=== PATIENT | female | born 1995 | race Caucasian/White ===

== ENCOUNTER 2020-03-30 10:55 | Outpatient (REF) | payer MEDICAID, SELFPAY | END 2020-03-30 10:56 | disposition home or self-care (01) | LOC: HO.LAB 10:55 | PROVIDERS: Visit Provider Internal Medicine | DX: Z20.828 Contact with and (suspected) exposure to other viral communicable diseases (principal) | CPT/HCPCS: 87635 ==

== ENCOUNTER 2020-04-19 19:54 | Emergency (ER) | payer MEDICAID, SELFPAY ==
[2020-04-19 20:46] VITALS: BP 103/65; PULSE 81; RESP 16; TEMP 36.4; O2SAT 96; BMI 30.2
--- NOTE | 2020-04-19 21:37 | ED_ITS ---
HPI - Ear Problem General Chief complaint: Ear Problems Stated complaint: ear bleeding Time Seen by Provider: 04/19/20 21:27 Source: patient Mode of arrival: ambulatory Limitations: no limitations History of Present Illness HPI Narrative: 24-year-old female presenting to the ED with complaints of right ear pain. Reports she was cleaning her ear due to she fell that she had water coming out of her ear and it was clogged and when she pulled out the Q-tip there was a little bit of blood in it and since then has been having worsening pain. Denies any other symptoms complaints or concerns at this time. Denies loss of hearing. Related Data Previous Rx's Medication Instructions Recorded acetaminophen-codeine 1 tab PO Q8H PRN #8 tab 04/19/20 amoxicillin-pot clavulanate 1 tab PO Q12H 10 Days #20 tab 04/19/20 [Augmentin] Allergies Allergy/AdvReac Type Severity Reaction Status Date / Time No Known Allergies Allergy Verified 04/19/20 20:46 [No Known Allergies*] Review of Systems Review of Systems: Constitutional : No Fever, No Chills ENT/Mouth : No Hearing loss, + Ear Pain, No Nasal Congestion, No Sinus Pain, No Hoarseness, No sore throat, No Rhinorrhea, No Swallowing Difficulty Cardiovascular : No Chest Pain, No SOB, No Dyspnea on Exertion, No Orthopnea, No Edema, No Palpitations Respiratory : No Cough, No Sputum, No Wheezing Musculoskeletal : No joint pain, No Myalgias, No Joint Swelling Skin : No Skin Lesions, No rash Neuro : No Weakness, No Numbness, No Paresthesias, No Loss of Consciousness, No Dizziness, No Headache Heme/Lymph: No Lymphadenopathy Yes all other systems are reviewed and are negative [facility], [facility] Past Medical History Attestation statement: The following information was validated with the patient. Medical History No known health problems Social History Social History Advance Directives: No Advance Directives Information Provided: Yes Physical Exam Vital Signs: Vital Signs: Vital Signs Temp Pulse Resp BP Pulse Ox 04/19/20 20:46 97.6 F 81 16 103/65 96 Body Mass Index 30.2 vital signs have been reviewed as normal and appeared to be correct. Blood pressure normal. Heart rate normal. Respiration rate normal. Temperature normal. Oxygen saturation normal. Appearance: Alert. Oriented X3. No acute distress. Head: Normal external exam. Normocephalic. Atraumatic. No Pedro signs noted. No raccoon eyes noted Eyes: PERRLA. EOMI. Conjunctiva and sclera normal. Eyelids normal. ENT: EAC normal. Right tympanic membrane erythematous with loss of landmarks. Left tympanic membrane within normal limits. Pharynx normal. Uvula midline. Moist mucous membranes. No trismus noted. No drooling noted. No muffled voice noted. Neck: Normal inspection. Neck supple. FROM. No adenopathy. Thyroid Normal. No meningeal signs. No neck mass noted. CVS: Normal heart rate and rhythm. Heart sound normal. No murmurs noted. Pulses normal throughout. Respiratory: No respiratory distress. Painless inspiration. Breath sounds normal. No wheezes/rales/rhonchi noted. Chest nontender. No accessory muscle usage noted or decreased air movement noted. Back: No CVA tenderness. Full range of motion noted. Skin: Skin warm and dry. Normal skin color. Normal skin turgor. No rash es/lesions/lacerations noted. Extremities: No lower extremity edema. Extremities exhibit normal range of motion. Extremities nontender. Neuro: Oriented X 3. No motor deficit. No sensory deficit. Reflexes normal. Course Course Course Narrative: Patient with otitis media tympanic membrane appears to be intact. Will DC home with antibiotics and symptomatic treatment along with instructions to follow-up with primary care provider and to return if any new or worsening symptoms. Patient understands agrees with this plan. Discharge Plan Discharge Clinical Impression: Otitis media Patient Disposition: Home, Self-Care Instructions: Ear Infection (ED) Additional Instructions: Return if any new or worsening symptoms. Follow up with her primary care provider. Prescriptions: New amoxicillin-pot clavulanate [Augmentin] 875-125 mg tablet 1 tab PO Q12H 10 Days Qty: 20 RF: 0 acetaminophen-codeine 300-30 mg tablet 1 tab PO Q8H PRN (Reason: pain) Qty: 8 RF: 0 Stand Alone Forms: Work/School Release Print Language: Bolivian
== END 2020-04-19 21:59 | disposition home or self-care (01) ==
PROVIDERS: Emergency Provider Internal Medicine
DX: H66.91 Otitis media, unspecified, right ear (principal)
CPT/HCPCS: 99283

== ENCOUNTER 2020-04-23 11:10 | Emergency (ER) | payer MEDICAID, SELFPAY ==
[2020-04-23 11:18] VITALS: BP 98/72; PULSE 83; RESP 20; TEMP 36.7; BMI 30.7
--- NOTE | 2020-04-23 11:27 | CT_ITS ---
CT TEMPORAL BONE WITHOUT CONTRAST CLINICAL INFORMATION: Rule out mastoiditis. COMPARISON: None TECHNIQUE: Multidetector CT acquisition of the temporal bones is obtained without contrast. Multiplanar reformats are acquired and utilized for image interpretation. FINDINGS: There is mild soft tissue thickening along the periphery of the right bony external auditory canal and there is thickening of the right tympanic membrane that can be correlated with direct visual inspection to exclude otitis externa. There is a small left mastoid tip effusion without bone erosion. Mastoid air cells and middle ear cavities are otherwise clear bilaterally. No bony erosive changes. The ossicular chains are intact bilaterally. The inner ear structures are unremarkable bilaterally. The partially imaged paranasal sinuses remain well-aerated. The TMJs are normal. Facial nerves describe a normal course. There are no significant soft tissue findings. CT/CT mastoid IMPRESSION: There is mild soft tissue thickening along the periphery of the right bony external auditory canal and there is thickening of the right tympanic membrane that can be correlated with direct visual inspection to exclude otitis externa. There is a small left mastoid tip effusion without bone erosion. The mastoid air cells and middle ear cavities are otherwise clear bilaterally.
--- NOTE | 2020-04-23 11:29 | ED.PEDHENT ---
HPI - Pediatric HENT General Chief complaint: Ear Problems Stated complaint: EAR PAIN Time Seen by Provider: 04/23/20 11:18 Source: patient Mode of arrival: ambulatory Limitations: no limitations History of Present Illness HPI Narrative: R ear pain x 1 week with pink drainage from the ear. Seen here 04/19 and diagnosed with R AOM. Given augmentin and tylenol with codeine. Continued pain now behind the ear. No fevers/chills. MD complaint: ear pain Onset (ago): week(s) (1 week ) Fever: No Pain location: right ear Pain Consistency: constant Context: none Associated symptoms: discharge from ear Treatments prior to arrival: other (Augmentin, APAP with codeine. ) Related Data Previous Rx's Medication Instructions Recorded acetaminophen-codeine 1 tab PO Q8H PRN #8 tab 04/19/20 amoxicillin-pot clavulanate 1 tab PO Q12H 10 Days #20 tab 04/19/20 [Augmentin] ciprofloxacin-dexamethasone 4 drp OTIC (EARS) BID 7 Days #7.5 04/23/20 [Ciprodex] ml clindamycin HCl 300 mg PO BID 7 Days #14 cap 04/23/20 hydrocodone-acetaminophen 2 tab PO Q6H PRN #10 tab 04/23/20 Allergies Allergy/AdvReac Type Severity Reaction Status Date / Time No Known Allergies Allergy Verified 04/19/20 20:46 [No Known Allergies*] Pediatric Review of Systems : All systems ED: reviewed and negative except as stated Constitutional: Denies fever and chills Eyes: Denies eye pain and eye discharge ENT: Reports ear pain and other (ear dischrge ); Denies sore throat Cardiovascular: Denies chest pain, syncope and dyspnea on exertion Respiratory: Denies cough, dyspnea and wheezing Gastrointestinal: Denies abdominal pain, nausea, vomiting and diarrhea Musculoskeletal: Denies back pain, joint swelling and joint pain Integumentary: Denies rash Neurological: Denies headache, weakness and difficulty walking Psychiatric: Denies change in energy level Endocrine: Denies fatigue Hematological/Lymphatic: Denies easy bleeding and easy bruising PMFSH Past Medical History Attestation statement: The following information was validated with the patient. Source: obtained from family and nursing notes reviewed Medical History No known health problems Social History Social History Smoking Status: Light tobacco smoker Use of substances other than those prescribed or required for medical reasons: No Advance Directives: No Advance Directives Information Provided: No Pediatric Exam General: Limitations: no limitations General appearance: well-appearing, well-hydrated and active Head: Head exam: normocephalic Eye: Eye exam: Present normal appearance, PERRL and EOMI ENT: ENT exam: normal exam, normal oropharynx, mucous membranes moist and mucous membranes dry Expanded ENT Exam: External ear exam: Present mastoid tenderness, pain with movement and external tenderness TM/Canal exam: Right TM: erythema, bulging, loss of landmarks, canal discharge and canal tenderness Neck: Neck exam: Present normal inspection, full ROM and trachea midline; Absent meningismus and lymphadenopathy Chest: Chest inspection: Present normal inspection and symmetric chest wall rise Respiratory: Respiratory exam: Present normal lung sounds bilaterally; Absent respiratory distress, wheezes, stridor, accessory muscle use and prolonged expiratory phase Cardiovascular: Cardiovascular exam: Present regular rate and normal rhythm Abdominal Exam: Abdominal exam: Present soft; Absent tenderness Extremities Exam: Extremities exam: Present normal inspection, full ROM and normal capillary refill; Absent tenderness, pedal edema, joint swelling and calf tenderness Back Exam: Back exam: Present normal inspection and full ROM Skin: Skin exam: Present warm, dry and intact Course Course Course Narrative: Will check CT mastoid to r/o mastroiditis, check urine , give analgesia and re-assess. 1300-Ct read as mild soft tissue thickening along the periphery of the right bony external auditory canal and there is thickening of the right tympanic membrane that can be correlated with direct visual inspection to exclude otitis externa. There is a small left mastoid tip effusion without bone erosion. The mastoid air cells and middle ear cavities are otherwise clear bilaterally. Not likely mastroiditis. Patient has no obvious sweling/erythema over mastoid. She does have tenderness. Discussed with Dr Corrales who agrees not likely mastoiditis. Will check labs including inflammatory markers, give dose if IV antibiotics. 1505- labs show no leukocytosis. No shift. Inflammatory markers are negative. Again exam is not consistent with mastoiditis with no obvious swelling or erythema. The patient will be sent home with antibiotics, additional pain medication and follow-up with ear nose and throat. Reviewed worrisome signs and symptoms and when to return to the emergency department. Comfortable discharge home. Medical Decision Making Medical Records Medical records reviewed: Yes I reviewed the patient's medical records. Lab Data Lab results reviewed: Yes I reviewed the patient's lab results. Result diagrams: 04/23/20 13:57 04/23/20 13:57 Labs: Lab Results 04/23/20 04/23/20 04/23/20 Range/Units 11:41 13:57 13:57 WBC 8.6 (4.8-10.8) X10*3/uL RBC 3.88 L (4.20-5.50) X10*6/uL Hgb 11.8 L (12.0-16.0) g/dl Hct 35.5 L (37-47) % MCV 91.5 (80-98) fL MCH 30.4 (27.0-33.0) pg MCHC 33.2 (31.0-35.0) g/dl RDW 13.7 (11.0-16.0) % Plt Count 201 (160-400) X10*3/uL MPV 12.7 H (9.4-12.3) fL Immature Gran % (Auto) 0.3 (0.0-0.4) % Neut % (Auto) 65.9 (45-73) % Lymph % (Auto) 21.1 (20-40) % [place] % (Auto) 7.9 (2-11) % Eos % (Auto) 4.6 H (0-4) % Baso % (Auto) 0.2 (0-2) % Lymph # (Auto) 1.8 (1.2-4.9) X10*3/uL [place] # (Auto) 0.7 (0.1-1.2) X10*3/uL Eos # (Auto) 0.4 (0.0-0.4) X10*3/uL Baso # (Auto) 0.0 (0.0-0.2) X10*3/uL Abs Immat Gran (auto) 0.03 (0.00-0.03) X10*3/uL Absolute Neuts (auto) 5.7 (2.0-8.3) X10*3/uL Absolute Nucleated RBC 0.000 (0.0-0.012) X10*3/uL Nucleated RBC % (auto) 0.0 (0.0-0.2) /100WBC ESR 12 (0-20) MM/HR Hold Blue Top Sodium (135-145) mmol/L Potassium (3.3-5.1) mmol/l Chloride (96-108) mmol/L Carbon Dioxide (22-29) mmol/L Anion Gap (12-20) BUN (9-16) mg/dL Creatinine (0.5-1.4) mg/dL Estim Creat Clear Calc Estimated GFR Random Glucose (60-115) mg/dL Calcium (8.4-10.2) mg/dL C-Reactive Protein (< or = 0.50) mg/dL Urine Test NEGATIVE (NEGATIVE) 04/23/20 04/23/20 Range/Units 13:57 13:57 WBC (4.8-10.8) X10*3/uL RBC (4.20-5.50) X10*6/uL Hgb (12.0-16.0) g/dl Hct (37-47) % MCV (80-98) fL MCH (27.0-33.0) pg MCHC (31.0-35.0) g/dl RDW (11.0-16.0) % Plt Count (160-400) X10*3/uL MPV (9.4-12.3) fL Immature Gran % (Auto) (0.0-0.4) % Neut % (Auto) (45-73) % Lymph % (Auto) (20-40) % [place] % (Auto) (2-11) % Eos % (Auto) (0-4) % Baso % (Auto) (0-2) % Lymph # (Auto) (1.2-4.9) X10*3/uL [place] # (Auto) (0.1-1.2) X10*3/uL Eos # (Auto) (0.0-0.4) X10*3/uL Baso # (Auto) (0.0-0.2) X10*3/uL Abs Immat Gran (auto) (0.00-0.03) X10*3/uL Absolute Neuts (auto) (2.0-8.3) X10*3/uL Absolute Nucleated RBC (0.0-0.012) X10*3/uL Nucleated RBC % (auto) (0.0-0.2) /100WBC ESR (0-20) MM/HR Hold Blue Top SEE NOTE Sodium 140 (135-145) mmol/L Potassium 4.5 (3.3-5.1) mmol/l Chloride 106 (96-108) mmol/L Carbon Dioxide 26 (22-29) mmol/L Anion Gap 13 (12-20) BUN 13 (9-16) mg/dL Creatinine 0.67 (0.5-1.4) mg/dL Estim Creat Clear Calc 118.9 Estimated GFR > 60 Random Glucose 84 (60-115) mg/dL Calcium 8.2 L (8.4-10.2) mg/dL C-Reactive Protein 0.14 (< or = 0.50) mg/dL Urine Test (NEGATIVE) Imaging Data CT mastoid: Radiologist's impression: T TEMPORAL BONE WITHOUT CONTRAST CLINICAL INFORMATION: Rule out mastoiditis. COMPARISON: None TECHNIQUE: Multidetector CT acquisition of the temporal bones is obtained without contrast. Multiplanar reformats are acquired and utilized for image interpretation. FINDINGS: There is mild soft tissue thickening along the periphery of the right bony external auditory canal and there is thickening of the right tympanic membrane that can be correlated with direct visual inspection to exclude otitis externa. There is a small left mastoid tip effusion without bone erosion. Mastoid air cells and middle ear cavities are otherwise clear bilaterally. No bony erosive changes. The ossicular chains are intact bilaterally. The inner ear structures are unremarkable bilaterally. The partially imaged paranasal sinuses remain well-aerated. The TMJs are normal. Facial nerves describe a normal course. There are no significant soft tissue findings. CT/CT mastoid IMPRESSION: There is mild soft tissue thickening along the periphery of the right bony external auditory canal and there is thickening of the right tympanic membrane that can be correlated with direct visual inspection to exclude otitis externa. There is a small left mastoid tip effusion without bone erosion. The mastoid air cells and middle ear cavities are otherwise clear bilaterally. Discharge Plan Discharge Clinical Impression: Otitis media, Otitis externa Patient Disposition: Home, Self-Care Instructions: Ear Infection (ED) Additional Instructions: Stop augmentin. Start clindamycin Call ENT for follow-up. Prescriptions: New clindamycin HCl 300 mg capsule 300 mg PO BID 7 Days Qty: 14 RF: 0 ciprofloxacin-dexamethasone [Ciprodex] 0.3-0.1 % drops,suspension 4 drp otic (ears) BID 7 Days Qty: 7.5 RF: 0 hydrocodone-acetaminophen 5-300 mg tablet 2 tab PO Q6H PRN (Reason: pain) Qty: 10 RF: 0 No Action amoxicillin-pot clavulanate [Augmentin] 875-125 mg tablet 1 tab PO Q12H 10 Days Qty: 20 RF: 0 acetaminophen-codeine 300-30 mg tablet 1 tab PO Q8H PRN (Reason: pain) Qty: 8 RF: 0 Referrals: Angus Choi [Physician] - 2 days Interventions: ED Discharge Assessment Last Done: 04/23/20 15:02 Discharge Date/Time: 04/23/20 15:03
[2020-04-23] MEDS: Ketorolac Tromethamine 60 MG/2 ML VIAL IM (11:36)
[2020-04-23 11:58] LABS: UPreg QC Valid YES; Urine Pregnancy NEGATIVE (NEGATIVE)
[2020-04-23] MEDS: Clindamycin Phosphate/D5W 600 MG/50 ML PIGGYBACK 100 MG IV (14:02)
[2020-04-23 14:04] VITALS: BP 97/64; PULSE 65; RESP 16; TEMP 36.6; O2SAT 99
[2020-04-23 14:18] LABS: MANUAL DIFF FLAG NO
[2020-04-23 14:20] LABS: Basophils Percent Auto 0.2 % (0-2); Eosinophils Absolute Auto 0.4 X10*3/uL (0.0-0.4); Eosinophils Percent Auto 4.6 % (0-4); Hematocrit 35.5 % (37-47); Hemoglobin 11.8 g/dl (12.0-16.0); Imm Gran Abs Auto 0.03 X10*3/uL (0.00-0.03); Imm Gran Pct Auto 0.3 % (0.0-0.4); Lymphocytes Absolute Auto 1.8 X10*3/uL (1.2-4.9); Lymphocytes Percent Auto 21.1 % (20-40); Mean Corpuscular HGB Conc 33.2 g/dl (31.0-35.0); Mean Corpuscular Hemoglobin 30.4 pg (27.0-33.0); Mean Corpuscular Volume 91.5 fL (80-98); Mean Platelet Volume 12.7 fL (9.4-12.3); Monocytes Absolute Auto 0.7 X10*3/uL (0.1-1.2); Monocytes Percent Auto 7.9 % (2-11); Neutrophils Absolute Auto 5.7 X10*3/uL (2.0-8.3); Neutrophils Percent Auto 65.9 % (45-73); Platelet Count 201 X10*3/uL (160-400); Red Blood Count 3.88 X10*6/uL (4.20-5.50); Red Cell Distribution Width 13.7 % (11.0-16.0); White Blood Count 8.6 X10*3/uL (4.8-10.8)
[2020-04-23 14:37] LABS: Anion Gap 13 (12-20); Blood Urea Nitrogen 13 mg/dL (9-16); C Reactive Protein 0.14 mg/dL (< or = 0.50); Calcium 8.2 mg/dL (8.4-10.2); Carbon Dioxide 26 mmol/L (22-29); Chloride 106 mmol/L (96-108); Creatinine Clr Calc Pharmacy 118.9; Estimated Glomerular Filt Rate > 60; Glucose Random 84 mg/dL (60-115); Potassium 4.5 mmol/l (3.3-5.1); Sodium 140 mmol/L (135-145)
[2020-04-23 14:59] LABS: Erythrocyte Sedimentation Rate 12 MM/HR (0-20)
== END 2020-04-23 15:03 | disposition home or self-care (01) ==
PROVIDERS: Nurse Practitioner Family; Emergency Provider Emergency Medicine
DX: H66.001 Acute suppurative otitis media without spontaneous rupture of ear drum, right ear (principal); H92.01 Otalgia, right ear; Z79.899 Other long term (current) drug therapy; F17.200 Nicotine dependence, unspecified, uncomplicated; Z71.6 Tobacco abuse counseling
CPT/HCPCS: 36415; 70481; 80048; 81025; 85025; 85652; 86140; 96365; 96372; 99284; J1885

== ENCOUNTER 2020-06-12 16:26 | Outpatient (REF) | payer MEDICAID, SELFPAY | END 2020-06-12 16:27 | disposition home or self-care (01) | LOC: HO.LAB 16:26 | PROVIDERS: Visit Provider Internal Medicine | DX: Z20.828 Contact with and (suspected) exposure to other viral communicable diseases (principal) | CPT/HCPCS: C9803; U0003 ==

== ENCOUNTER 2020-06-15 14:52 | Outpatient (REF) | payer MEDICAID, SELFPAY | END 2020-06-15 14:53 | disposition home or self-care (01) | LOC: HO.LAB 14:52 | PROVIDERS: PCP Family Medicine; Visit Provider Internal Medicine | DX: Z20.828 Contact with and (suspected) exposure to other viral communicable diseases (principal) | CPT/HCPCS: C9803; U0003 ==

== ENCOUNTER 2020-06-20 16:44 | Emergency (ER) | payer MEDICAID, SELFPAY ==
[2020-06-20 17:18] VITALS: BP 110/67; PULSE 93; RESP 16; TEMP 36.5; O2SAT 100; BMI 30.2
[2020-06-20 20:00] VITALS: BP 122/86; PULSE 100; RESP 16; TEMP 36.6; O2SAT 100
--- NOTE | 2020-06-20 20:27 | ED.GENADULT ---
HPI - General Adult General Chief complaint: Dental/Oral Stated complaint: strept? Time Seen by Provider: 06/20/20 20:27 History of Present Illness HPI narrative: Patient complains of sore throat for 3 days, pain only with swallowing no fever no chills no cough no shortness of breath no nausea or vomiting Related Data Previous Rx's Medication Instructions Recorded acetaminophen-codeine 1 tab PO Q8H PRN #8 tab 04/19/20 amoxicillin-pot clavulanate 1 tab PO Q12H 10 Days #20 tab 04/19/20 [Augmentin] ciprofloxacin-dexamethasone 4 drp OTIC (EARS) BID 7 Days #7.5 04/23/20 [Ciprodex] ml clindamycin HCl 300 mg PO BID 7 Days #14 cap 04/23/20 hydrocodone-acetaminophen 2 tab PO Q6H PRN #10 tab 04/23/20 Allergies Allergy/AdvReac Type Severity Reaction Status Date / Time No Known Allergies Allergy Verified 04/19/20 20:46 [No Known Allergies*] Review of Systems Review of Systems: Patient complains of sore throat No fever no chills no dizziness no weakness, there is pain with swallowing but no difficulty swallowing no difficulty breathing, no chest pain no shortness of breath no cough no sputum no abdominal pain no nausea no vomiting no rashes Yes all other systems are reviewed and are negative PMFSH Past Medical History Source: nursing notes reviewed Medical History No known health problems Social History Social History Smoking Status: Light tobacco smoker Advance Directives: No Advance Directives Information Provided: No Physical Exam Vital Signs: Vital Signs: Last Vital Signs Temp 97.8 F 06/20/20 20:00 Pulse 100 06/20/20 20:00 Resp 16 06/20/20 20:00 BP 122/86 06/20/20 20:00 Pulse Ox 100 06/20/20 20:00 Body Mass Index 30.2 General appearance comfortable relax no acute distress The pharynx is well hydrated and there is mild very mild redness but no tonsillar swelling no exudate, uvula is midline there is no change to the voice no drooling no trismus The neck is supple without lymphadenopathy The chest is clear to auscultation bilateral with full symmetric equal breath sounds The heart rate and rhythm regular no murmurs Extremities no rash Course Course Course Narrative: Rapid strep was negative and patient had negative COVID swab just 2 days ago Discharge Plan Discharge Clinical Impression: Pharyngitis Patient Disposition: Home, Self-Care Additional Instructions: Rapid strep test was negative We will confirm that with the follow-up throat culture and if that changes the result we will call you Your COVID test yesterday was negative Return any time any worse condition or concerns Drink plenty of fluids, Tylenol or Motrin as needed for pain Prescriptions: No Action amoxicillin-pot clavulanate [Augmentin] 875-125 mg tablet 1 tab PO Q12H 10 Days Qty: 20 RF: 0 acetaminophen-codeine 300-30 mg tablet 1 tab PO Q8H PRN (Reason: pain) Qty: 8 RF: 0 clindamycin HCl 300 mg capsule 300 mg PO BID 7 Days Qty: 14 RF: 0 ciprofloxacin-dexamethasone [Ciprodex] 0.3-0.1 % drops,suspension 4 drp otic (ears) BID 7 Days Qty: 7.5 RF: 0 hydrocodone-acetaminophen 5-300 mg tablet 2 tab PO Q6H PRN (Reason: pain) Qty: 10 RF: 0 Interventions: ED Discharge Assessment Last Done: 06/20/20 20:54 Discharge Date/Time: 06/20/20 20:54
== END 2020-06-20 20:54 | disposition home or self-care (01) ==
PROVIDERS: Emergency Provider Emergency Medicine; PCP Family Medicine
DX: J02.9 Acute pharyngitis, unspecified (principal); F17.200 Nicotine dependence, unspecified, uncomplicated; Z71.6 Tobacco abuse counseling
CPT/HCPCS: 87071; 87880; 99283

== ENCOUNTER 2020-11-13 15:56 | Emergency (ER) | payer MEDICAID, SELFPAY ==
[2020-11-13 16:26] VITALS: BP 113/89; PULSE 84; RESP 16; TEMP 35.1; O2SAT 98; BMI 30.2
--- NOTE | 2020-11-13 17:03 | ED.HEATRA ---
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 No LOC, had a moment of blurry vision. No N/V. MD Complaint: head injury Onset (ago): hour(s) (5) Mechanism of Injury: fall Place: home Loss of Consciousness: no Location of injury: occipital Severity: mild Quality: aching Radiation: none Other Injuries: none Related Data Previous Rx's Medication Instructions Recorded acetaminophen-codeine 1 tab PO Q8H PRN #8 tab 04/19/20 amoxicillin-pot clavulanate 1 tab PO Q12H 10 Days #20 tab 04/19/20 [Augmentin] ciprofloxacin-dexamethasone 4 drp OTIC (EARS) BID 7 Days #7.5 04/23/20 [Ciprodex] ml clindamycin HCl 300 mg PO BID 7 Days #14 cap 04/23/20 hydrocodone-acetaminophen 2 tab PO Q6H PRN #10 tab 04/23/20 Allergies Allergy/AdvReac Type Severity Reaction Status Date / Time No Known Allergies Allergy Verified 04/19/20 20:46 [No Known Allergies*] Review of Systems Constitutional: Constitutional: Reports no additional constitutional complaints Eyes: Eyes: Reports no additional eye complaints ENT: Denies dizziness Cardiovascular: Cardiovascular: Reports no additional cardiovascular complaints Respiratory: Respiratory: Reports as per HPI Gastrointestinal: Gastrointestinal: Reports no additional gastrointestinal complaints Genitourinary: Genitourinary: Reports no additional female genitourinary complaints Musculoskeletal: Musculoskeletal: Reports no additional musculoskeletal complaints Integumentary/Breasts: Skin/Breast: Denies rash Neurologic: Reports system reviewed and no additional complaints, except as documented, Denies dizziness and Denies Sensory deficit (Neuro) Psychiatric: Psychiatric: Denies anxiety PMFSH Past Medical History Medical History No known health problems Social History Social History Smoking Status: Light tobacco smoker Patient : No Physical Exam Vital Signs: Vital Signs: Last Vital Signs Temp 95.2 F L 11/13/20 16:26 Pulse 84 05/24/21 16:26 Resp 16 11/13/20 16:26 BP 113/89 11/13/20 16:26 Pulse Ox 98 11/13/20 16:26 Body Mass Index 30.2 Const: General: healthy appearing Nutritional Appearance: average body habitus Orientation/consciousness: oriented to person and patient oriented x3 Limitations: no limitations HENMT: Head: Yes normal to inspection Ears: external ears normal General nose exam: Normal external nose present Mouth: Normal oral and palatal mucosa present and oropharynx normal Throat: Yes posterior oropharynx normal Eyes: General: appearance normal, both eyes and all related structures Neck: Other: supple Neck: Yes normal visual inspection Chest: Chest palpation & inspection: normal inspection of the chest Resp: Auscultation: clear to auscultation bilaterally Cardio: Jugular venous distension: no JVD Rate: regular rate Rhythm: regular rhythm Heart sounds: S1 normal heart sound present and S2 normal heart sound present GI: Inspection: Yes normal to inspection Palpation (GI): Soft to palpation, nontender and No hepatosplenomegaly present Auscultation: normal bowel sounds : General: Yes no CVA tenderness Back/Spine/Pelvis: Back: no CVA tenderness Skin: General skin exam: no rashes or lesions noted Neuro: General: oriented to person and patient oriented x3 Cranial nerves: Yes CN's II-XII intact bilaterally Motor exam (neuro): 5/5 motor strength present throughout Sensory Exam: No Sensory deficit (Neuro) Extrem: General: Yes normal to inspection Psych: Appearance: grossly normal Course Course Course Narrative: patient with no evidence of concussion, neuro exam nonfocal able to do serial 7s. Discharge Plan Discharge Clinical Impression: Closed head injury Patient Disposition: Home, Self-Care Additional Instructions: may alternate tylenol or motrin every 3hours. Return for vomiting and confusion Prescriptions: No Action amoxicillin-pot clavulanate [Augmentin] 875-125 mg tablet 1 tab PO Q12H 10 Days Qty: 20 RF: 0 acetaminophen-codeine 300-30 mg tablet 1 tab PO Q8H PRN (Reason: pain) Qty: 8 RF: 0 clindamycin HCl 300 mg capsule 300 mg PO BID 7 Days Qty: 14 RF: 0 ciprofloxacin-dexamethasone [Ciprodex] 0.3-0.1 % drops,suspension 4 drp otic (ears) BID 7 Days Qty: 7.5 RF: 0 hydrocodone-acetaminophen 5-300 mg tablet 2 tab PO Q6H PRN (Reason: pain) Qty: 10 RF: 0 Referrals: Physician,Unknown [Primary Care Provider] - 1 week
== END 2020-11-13 17:33 | disposition home or self-care (01) ==
PROVIDERS: Emergency Provider Emergency Medicine
DX: S09.90XA Unspecified injury of head, initial encounter (principal); W19.XXXA Unspecified fall, initial encounter; F17.210 Nicotine dependence, cigarettes, uncomplicated; Y93.75 Activity, martial arts; Y92.039 Unspecified place in apartment as the place of occurrence of the external cause; Y99.9 Unspecified external cause status
CPT/HCPCS: 99283; 99284

== ENCOUNTER 2020-12-31 13:55 | Emergency (ER) | payer MEDICAID, SELFPAY ==
[2020-12-31 14:10] VITALS: BP 118/74; PULSE 95; RESP 16; TEMP 36.8; O2SAT 99; BMI 30.2
--- NOTE | 2020-12-31 17:12 | ED.GENADULT ---
HPI - General Adult General Chief complaint: Upper Respiratory Symptoms Stated complaint: SORE THROAT Time Seen by Provider: 12/31/20 17:12 Source: patient Limitations: no limitations History of Present Illness HPI narrative: Patient presents to the ER complaining of sore throat some slight congestion patient states she was exposed to the cold and rainy weather. Patient denies shortness of breath fever chills patient has been fully vaccinated for COVID-19. Patient denies nausea vomiting chest pain or abdominal pain. Symptoms are [id number]. Slight scratchy throat with slight pain with swallowing. Related Data Previous Rx's Medication Instructions Recorded acetaminophen-codeine 1 tab PO Q8H PRN #8 tab 04/19/20 amoxicillin-pot clavulanate 1 tab PO Q12H 10 Days #20 tab 04/19/20 [Augmentin] ciprofloxacin-dexamethasone 4 drp OTIC (EARS) BID 7 Days #7.5 04/23/20 [Ciprodex] ml clindamycin HCl 300 mg PO BID 7 Days #14 cap 04/23/20 hydrocodone-acetaminophen 2 tab PO Q6H PRN #10 tab 04/23/20 Allergies Allergy/AdvReac Type Severity Reaction Status Date / Time No Known Allergies Allergy Verified 04/19/20 20:46 [No Known Allergies*] Review of Systems Constitutional: Constitutional: Denies chills, Denies excessive sweating, Denies fatigue, Reports headache(s) and Denies malaise Eyes: Eyes: Denies diplopia ENT: Reports headache(s), Reports nasal congestion, Denies nasal discharge and Reports sore throat Cardiovascular: Cardiovascular: Denies chest pain and Denies dyspnea Respiratory: Respiratory: Denies cough and Denies dyspnea Gastrointestinal: Gastrointestinal: Denies diarrhea, Denies nausea and Denies vomiting Musculoskeletal: Musculoskeletal: Reports no additional musculoskeletal complaints Neurologic: Reports headache(s) and Denies focal weakness Endocrine: Endocrine: Denies excessive sweating and Denies fatigue PMFSH Past Medical History Attestation statement: The following information was validated with the patient. Medical History No known health problems Social History Social History Alcohol intake: current Alcohol intake frequency: a few times a month Advance Directives: No Advance Directives Information Provided: No Physical Exam Vital Signs: Vital Signs: Last Vital Signs Temp 98.2 F 12/31/20 14:10 Pulse 95 12/31/20 14:10 Resp 16 12/31/20 14:10 BP 118/74 12/31/20 14:10 Pulse Ox 99 12/31/20 14:10 Body Mass Index 30.2 Medical Decision Making Lab Data Labs: Lab Results 12/31/20 Range/Units 17:06 S. pyogenes GrpA DANA Negative (Negative) Discharge Plan Discharge Clinical Impression: Upper respiratory infection Patient Disposition: Home, Self-Care Instructions: Upper Respiratory Infection (ED) Additional Instructions: symptoms are consistent with a upper respiratory tract infection viral syndrome increase fluids rest [id number] meds for relief throat cultures negative Prescriptions: No Action amoxicillin-pot clavulanate [Augmentin] 875-125 mg tablet 1 tab PO Q12H 10 Days Qty: 20 RF: 0 acetaminophen-codeine 300-30 mg tablet 1 tab PO Q8H PRN (Reason: pain) Qty: 8 RF: 0 clindamycin HCl 300 mg capsule 300 mg PO BID 7 Days Qty: 14 RF: 0 ciprofloxacin-dexamethasone [Ciprodex] 0.3-0.1 % drops,suspension 4 drp otic (ears) BID 7 Days Qty: 7.5 RF: 0 hydrocodone-acetaminophen 5-300 mg tablet 2 tab PO Q6H PRN (Reason: pain) Qty: 10 RF: 0 Referrals: Chelsea Lujan [Emergency Nurse] - 2 days
[2020-12-31 17:37] LABS: IDNOW Serial# 9DD0AD1C; Strep A Nucleic Acid Negative (Negative)
[2020-12-31 18:10] LABS: Influenza A PCR NEGATIVE (Negative); Influenza B PCR NEGATIVE (Negative); Resp Syncy Virus RNA Qual PCR NEGATIVE (Negative); SARS COV2 PCR INHOUSE NEGATIVE (Negative)
== END 2020-12-31 18:18 | disposition home or self-care (01) ==
PROVIDERS: Emergency Provider Internal Medicine
DX: J06.9 Acute upper respiratory infection, unspecified (principal); Z20.822 Contact with and (suspected) exposure to COVID-19
CPT/HCPCS: 0241U; 36415; 87651; 99283

== ENCOUNTER 2021-12-21 18:43 | Emergency (ER) | payer MEDICAID, SELFPAY ==
[2021-12-21 18:46] VITALS: BP 119/69; PULSE 99; RESP 18; TEMP 37; O2SAT 97; BMI 30.2
[2021-12-21 19:10] LABS: Strep A Nucleic Acid Negative (Negative)
[2021-12-21 19:15] LABS: COVID-19 Test Negative (Negative); IDNOW Serial# 16C4AD1C; Influenza A Negative (Negative); Influenza B2 Negative (Negative)
--- NOTE | 2021-12-21 19:52 | ED.URI ---
HPI - URI/Sore Throat General Chief Complaint: Upper Respiratory Symptoms Stated Complaint: Cough/Ear pain/Head pressure Time Seen by Provider: 12/21/21 19:33 Source: patient Mode of arrival: ambulatory Limitations: no limitations History of Present Illness HPI Narrative: 26-year-old female previously healthy here with 1 week of sinus pressure, sinus pain, bilateral ear pain, frontal headache. Patient tells me her daughter is sick at home with similar symptoms. No fevers, chills, cough, difficulty breathing, chest pain, neck pain, neck stiffness, vomiting, diarrhea, abdominal pain. Related Data Previous Rx's Medication Instructions Recorded acetaminophen 300 mg-codeine 30 mg 1 tab PO Q8H PRN pain #8 tabs 04/19/20 tablet amoxicillin 875 mg-potassium 1 tab PO Q12H otitis media 10 days 04/19/20 clavulanate 125 mg tablet #20 tabs (Augmentin) ciprofloxacin 0.3 %-dexamethasone 4 drp otic (ears) BID 7 days #7.5 04/23/20 0.1 % ear drops,suspension mL (Ciprodex) clindamycin HCl 300 mg capsule 300 mg PO BID 7 days #14 caps 04/23/20 hydrocodone 5 mg-acetaminophen 300 2 tab PO Q6H PRN pain #10 tabs 04/23/20 mg tablet amoxicillin 875 mg-potassium 1 tab PO BID #14 tabs 12/21/21 clavulanate 125 mg tablet ibuprofen 600 mg tablet 600 mg PO Q8H PRN fever or pain 12/21/21 #30 tabs prednisone 20 mg tablet 40 mg PO DAILY #10 tabs 12/21/21 Allergies Allergy/AdvReac Type Severity Reaction Status Date / Time No Known Allergies Allergy Verified 04/19/20 20:46 [No Known Allergies*] Review of Systems Review of Systems: Yes all other systems are reviewed and are negative Constitutional: Constitutional: Reports no additional constitutional complaints, Denies body ache(s), Denies chills, Denies fever(s), Reports headache(s) and Denies weakness Eyes: Eyes: Reports no additional eye complaints and Denies change in vision ENT: Reports system reviewed and no additional complaints, except as documented, Denies dizziness, Reports otalgia, Reports headache(s), Denies nasal congestion, Denies nasal discharge, Denies neck pain, Reports sinus pain and Reports sinus pressure Cardiovascular: Cardiovascular: Reports no additional cardiovascular complaints, Denies chest pain, Denies leg edema and Denies dyspnea Respiratory: Respiratory: Reports no additional respiratory complaints, Denies cough and Denies dyspnea Gastrointestinal: Gastrointestinal: Reports no additional gastrointestinal complaints, Denies abdominal pain, Denies diarrhea, Denies nausea and Denies vomiting Genitourinary: Genitourinary: Reports no additional female genitourinary complaints and Denies urinary incontinence Musculoskeletal: Musculoskeletal: Reports no additional musculoskeletal complaints, Denies back pain, Denies arthralgias, Denies joint swelling, Denies neck pain, Denies numbness and Denies tingling Integumentary/Breasts: Skin/Breast: Reports system reviewed and no additional complaints, except as docu and Denies rash Neurologic: Reports system reviewed and no additional complaints, except as documented, Denies Abnormal speech present, Denies dizziness, Reports headache(s), Denies numbness, Denies tingling and Denies weakness PMFSH Past Medical History Attestation statement: The following information was validated with the patient. Source: old records reviewed and nursing notes reviewed Medical History No known health problems Social History Social History Alcohol intake: current Alcohol intake frequency: a few times a month Advance Directives: No Advance Directives Information Provided: No Physical Exam Vital Signs: Vital Signs: Last Vital Signs Temp 98.6 F 12/21/21 18:46 Pulse 99 12/21/21 18:46 Resp 18 12/21/21 18:46 BP 119/69 12/21/21 18:46 Pulse Ox 97 12/21/21 18:46 O2 Del Method 12/21/21 18:46 BMI result Body Mass Index 30.2 Const: General: cooperative, healthy appearing, comfortable and no acute distress Orientation/consciousness: patient oriented x3 Limitations: no limitations HEENT: Head: Yes normal to inspection Ears: hearing grossly normal bilaterally and TM abnormal ( Bilateral TM effusion with no erythema) General nose exam: Normal external nose present Face and sinus: Yes normal facial exam, Yes sinus tenderness ( frontal and maxillary) and Yes other ( bilateral nasal turbinate erythema) Mouth: Normal oral and palatal mucosa present Throat: Yes posterior oropharynx normal, Yes tonsils normal and Yes uvula midline Eyes: General: appearance normal, both eyes and all related structures Pupils: Equal, round and reactive pupils present Neck: Neck: Yes normal visual inspection, Yes full ROM and Yes no lymphadenopathy Chest: Chest palpation & inspection: normal inspection of the chest Resp: Effort & Inspection: normal respiratory effort Auscultation: clear to auscultation bilaterally Cardio: Rate: regular rate Rhythm: regular rhythm Peripheral pulses: Peripheral pulses 2+ throughout GI: Inspection: Yes normal to inspection Palpation (GI): Soft to palpation and nontender Auscultation: normal bowel sounds Back/Spine/Pelvis: Thoracic/Lumbar Spine: thoracic and lumbar spine normal to inspection Skin: General skin exam: no rashes or lesions noted Neuro: General: patient oriented x3, no focal motor deficits and normal sensation to monofilament Cranial nerves: Yes Equal, round and reactive pupils present Cognition (Neuro): normal cognition Speech: No Abnormal speech present Gait exam (Neuro): Normal gait present Motor exam (neuro): 5/5 motor strength present throughout Extrem: General: Yes normal to inspection MDM - URI/Sore Throat MDM Narrative Medical decision making narrative: 26-year-old female here with 1 week of sinus pressure, sinus pain, frontal headache, bilateral ear pain. Exam is consistent with sinusitis. Bilateral TMs have mild effusion with no erythema. Will treat with course of antibiotics, prednisone, NSAID for pain. Testing for flu and COVID and strep are negative. reviewed worrisome signs and symptoms of when to return to the emergency department. Comfortable discharge home. Medical Records Attestation: I reviewed the patient's medical records. Lab Data Attestation: I reviewed the patient's lab results. Labs: Lab Results 12/21/21 12/21/21 12/21/21 Range/Units 18:49 18:49 18:49 COVID-19 (MARCIA) Negative (Negative) COVID-19 Clin Com See Note Influenza Type A (DANA) Negative (Negative) Influenza Type B (DANA) Negative (Negative) Influenza A & B Note See Note S. pyogenes GrpA DANA Negative (Negative) Discharge Plan Discharge Clinical Impression: Sinusitis, Otitis media Patient Disposition: Home, Self-Care Instructions: Sinusitis (ED), Ear Infection (ED) Additional Instructions: Testing for flu and COVID are negative Prescriptions: New amoxicillin-pot clavulanate 875-125 mg tablet 1 tab PO BID Qty: 14 0RF ibuprofen 600 mg tablet 600 mg PO Q8H PRN (Reason: fever or pain) Qty: 30 0RF prednisone 20 mg tablet 40 mg PO DAILY Qty: 10 0RF No Action amoxicillin-pot clavulanate [Augmentin] 875-125 mg tablet 1 tab PO Q12H 10 Days Qty: 20 0RF acetaminophen-codeine 300-30 mg tablet 1 tab PO Q8H PRN (Reason: pain) Qty: 8 0RF clindamycin HCl 300 mg capsule 300 mg PO BID 7 Days Qty: 14 0RF ciprofloxacin-dexamethasone [Ciprodex] 0.3-0.1 % drops,suspension 4 drp otic (ears) BID 7 Days Qty: 7.5 0RF hydrocodone-acetaminophen 5-300 mg tablet 2 tab PO Q6H PRN (Reason: pain) Qty: 10 0RF Referrals: [facility] [Primary Care Provider] - Interventions: ED Discharge Assessment Last Done: 12/21/21 20:00 Discharge Date/Time: 12/21/21 20:01
== END 2021-12-21 20:01 | disposition home or self-care (01) ==
PROVIDERS: Emergency Provider Emergency Medicine
DX: H66.93 Otitis media, unspecified, bilateral (principal); R05.9 Cough, unspecified; R51.9 Headache, unspecified; H92.03 Otalgia, bilateral; Z20.822 Contact with and (suspected) exposure to COVID-19; Z79.899 Other long term (current) drug therapy
CPT/HCPCS: 87502; 87635; 87651; 99282; 99283

== ENCOUNTER 2022-05-10 10:58 | Outpatient (REF) | payer OTHER, SELFPAY ==
--- NOTE | ~2022-05-10 | XR_ITS ---
EXAMINATION: XR LUMBOSACRAL SPINE CLINICAL INFORMATION: Pain COMPARISON: Previous x-ray July 2011 TECHNIQUE: Three views of the lumbosacral spine. FINDINGS: The vertebral bodies and posterior elements are normal. The disc spaces are preserved and the vertebral alignment is normal. The paraspinal soft tissues are normal. XR/XR lumbar spine 2-3V IMPRESSION: Unremarkable examination.
[2022-05-10 14:05] LABS: MANUAL DIFF FLAG NO
[2022-05-10 14:11] LABS: Basophils Percent Auto 0.3 % (0-2); Eosinophils Absolute Auto 0.5 X10*3/uL (0.0-0.4); Eosinophils Percent Auto 4.9 % (0-4); Hematocrit 38.7 % (37.0-47.0); Hemoglobin 12.9 g/dl (12.0-16.0); Imm Gran Abs Auto 0.05 X10*3/uL (0.00-0.03); Imm Gran Pct Auto 0.5 % (0.0-0.4); Lymphocytes Percent Auto 19.8 % (20-40); Mean Corpuscular HGB Conc 33.3 g/dl (31.0-35.0); Mean Corpuscular Hemoglobin 30.5 pg (27.0-33.0); Mean Corpuscular Volume 91.5 fL (80.0-98.0); Monocytes Absolute Auto 0.8 X10*3/uL (0.1-1.2); Monocytes Percent Auto 8.1 % (2-11); Neutrophils Absolute Auto 6.6 x10*3/uL (2.0-8.3); Neutrophils Percent Auto 66.4 % (45-73); Platelet Count 211 X10*3/uL (160-400); Red Blood Count 4.23 X10*6/uL (4.20-5.50); Red Cell Distribution Width 13.8 % (11.0-16.0); White Blood Count 9.9 X10*3/uL (4.8-10.8)
[2022-05-10 14:44] LABS: Alanine Aminotransferase 26 U/L (0-31); Albumin Level 4.4 g/dL (3.5-5.0); Alkaline Phosphatase 50 U/L (39-117); Anion Gap 11 (12-20); Aspartate Amino Transferase 19 U/L (5-31); Bilirubin Total 0.4 mg/dL (0.0-1.0); Blood Urea Nitrogen 9 mg/dL (9-16); Calcium 9.3 mg/dL (8.4-10.2); Carbon Dioxide 27 mmol/L (22-29); Chloride 108 mmol/L (96-108); Cholesterol 165 mg/dL; Estimated Glomerular Filt Rate > 60; Glucose Fasting 92 mg/dL (60-99); HDL Cholesterol 42 mg/dL; LDL Cholesterol Calculated 102 mg/dl; Potassium 4.7 mmol/L (3.3-5.1); Sodium 141 mmol/L (135-145); Total Protein 7.2 g/dL (6.5-8.0); Triglycerides 106 mg/dL
== END 2022-05-10 10:59 | disposition home or self-care (01) ==
LOC: HO.HMGCX 10:58
PROVIDERS: PCP Internal Medicine; Visit Provider Internal Medicine
DX: Z00.00 Encounter for general adult medical examination without abnormal findings (principal); G89.29 Other chronic pain; M54.50 Low back pain, unspecified
CPT/HCPCS: 36415; 72100; 80053; 80061; 84443; 85025

== ENCOUNTER 2022-09-08 15:55 | Emergency (ER) | payer OTHER, SELFPAY ==
[2022-09-08 16:04] VITALS: BP 114/79; PULSE 92; RESP 16; TEMP 35.9; O2SAT 99; BMI 31.1
--- NOTE | 2022-09-08 16:42 | ED.GENADULT ---
HPI - General Adult General Chief complaint: Extremity Injury, Lower Stated complaint: Pulled a muscle left leg Time Seen by Provider: 09/08/22 16:34 Source: patient, family, RN notes reviewed and old records reviewed Mode of arrival: ambulatory Limitations: no limitations History of Present Illness HPI narrative: 27-year-old female presenting for evaluation of left hip pain Patient reports that she woke up with the pain about 8 hours ago She complains of 10/10 pain to the left hip that radiates around to the left anterior thigh. Patient believes she ?slept on it wrong because I was sleeping with my toddler. ? This has happened before. She denies any specific injury yesterday or today. No has not been any trauma Patient denies any history of blood clots, no recent travel and she is not on control Patient reports Last time I got an injection and the pain went away. ? Related Data Previous Rx's Medication Instructions Recorded naproxen 500 mg tablet 500 mg PO BID PRN pain #14 tabs 09/08/22 Allergies Allergy/AdvReac Type Severity Reaction Status Date / Time No Known Allergies Allergy Verified 05/10/22 10:08 [No Known Allergies*] Review of Systems Constitutional: Constitutional: Reports as per HPI and Denies chills Gastrointestinal: Gastrointestinal: Denies abdominal pain, Denies constipation and Denies vomiting Genitourinary: Genitourinary: Denies dysuria Musculoskeletal: Musculoskeletal: Reports arthralgias and Reports limited range of motion PMFSH Past Medical History Medical History No known health problems Family History Family History Father Hypertension Diabetes Substance use disorder Mother No problems noted. Sister Mental health disorder Sister Mental health disorder Social History Social History (Updated 05/10/22 @ 10:53 by Lala Harding MD) Household Members Other:: single mother, unemployed Housing: Apartment Alcohol intake: current Alcohol intake frequency: a few times a month Patient Tobacco Use Status: Current everyday Tobacco user Cigarettes Per Day: 7 e-Cigarette/Vaping Use: Never Used Advance Directives: No Advance Directives Information Provided: No Current occupational status: unemployed Cognitive needs: No Hearing needs: No Vision needs: Yes Physical Exam ED Vital Signs: Vital Signs - 24 hr 09/08/22 16:04 Temperature 96.7 F L Pulse Rate 92 Respiratory Rate 16 Blood Pressure 114/79 Pulse Oximetry 99 Oxygen Delivery Method Room Air BMI result Body Mass Index 31.1 Const General: healthy appearing, comfortable, no acute distress, alert and awake Nutritional Appearance: well nourished Orientation/consciousness: patient oriented x3 Resp Effort & Inspection: normal respiratory effort, able to speak in complete sentences, no audible wheezes and not labored Back/Spine/Pelvis Other: Patient has no lumbar spinal or paraspinous muscle tenderness. Straight leg raise negative bilaterally Skin General skin exam: no rashes or lesions noted and elasticity normal Lesions: no lesions Rashes: no rashes Neuro General: patient oriented x3 Extrem Other: Patient has tenderness to the left hip that follows the IT band around to the left anterior thigh. There is no edema, no calf tenderness. Negative Homans sign distal sensation capillary refill intact. Medical Decision Making Medical Decision Making [facility] Narrative: 27-year-old female presents for evaluation of atraumatic left hip pain. She believe she slept on it wrong this has happened in the past. There have not been any signs of trauma, the patient is a former any trauma, I do not feel that an x-ray will have any yield for the patient. I considered an ultrasound to rule out DVT but the patient has no risk factors, and her symptoms clinically appear to be classically musculoskeletal in origin. I did discuss this with the patient if her symptoms do not improve she may return for an ultrasound to rule this out. Patient medicated with Toradol and she will be discharged with naproxen Differential Diagnosis Left hip bursitis All muscle DVT Back pain Radiculopathy Discharge Plan Discharge Clinical Impression: Bursitis of left hip Patient Disposition: Home, Self-Care Instructions: Hip Bursitis (ED) Additional Instructions: Take naproxen twice daily for the next 5 days. Your symptoms should resolve this time. If they do not you should talk to your primary doctor about getting an ultrasound of your left leg Prescriptions: New naproxen 500 mg tablet 500 mg PO BID PRN (Reason: pain) Qty: 14 0RF
[2022-09-08] MEDS: Ketorolac Tromethamine 30 MG/ML VIAL IM (17:23)
== END 2022-09-08 17:23 | disposition home or self-care (01) ==
PROVIDERS: Emergency Provider Emergency Medicine; PCP Internal Medicine
DX: M70.62 Trochanteric bursitis, left hip (principal); F17.210 Nicotine dependence, cigarettes, uncomplicated; Z71.6 Tobacco abuse counseling; Z79.899 Other long term (current) drug therapy
CPT/HCPCS: 96372; 99283; 99284; J1885

== ENCOUNTER 2023-02-08 08:19 | Emergency (ER) | payer OTHER, SELFPAY ==
[2023-02-08 08:24] VITALS: BP 101/73; PULSE 107; RESP 16; TEMP 37.3; O2SAT 96; BMI 32.7
[2023-02-08 08:56] LABS: MANUAL DIFF FLAG NO
[2023-02-08 08:57] LABS: Basophils Percent Auto 0.1 % (0-2); Hematocrit 35.7 % (37.0-47.0); Hemoglobin 12.1 g/dl (12.0-16.0); Imm Gran Abs Auto 0.04 X10*3/uL (0.00-0.03); Imm Gran Pct Auto 0.6 % (0.0-0.4); Lymphocytes Absolute Auto 0.8 X10*3/uL (1.2-4.9); Lymphocytes Percent Auto 11.8 % (20-40); Mean Corpuscular HGB Conc 33.9 g/dl (31.0-35.0); Mean Corpuscular Hemoglobin 30.4 pg (27.0-33.0); Mean Corpuscular Volume 89.7 fL (80.0-98.0); Mean Platelet Volume 12.2 fL (9.4-12.3); Monocytes Absolute Auto 0.8 X10*3/uL (0.1-1.2); Monocytes Percent Auto 10.8 % (2-11); Neutrophils Absolute Auto 5.4 x10*3/uL (2.0-8.3); Neutrophils Percent Auto 76.7 % (45-73); Platelet Count 132 X10*3/uL (160-400); Red Blood Count 3.98 X10*6/uL (4.20-5.50); Red Cell Distribution Width 13.4 % (11.0-16.0); White Blood Count 7.1 X10*3/uL (4.8-10.8)
[2023-02-08] MEDS: ondansetron HCL 4 MG/2 ML VIAL IVPUSH (08:58)
[2023-02-08] MEDS: 0.9 % Sodium Chloride 1,000 ML 999 ML IVCONT ×2 (08:58→09:59)
[2023-02-08] MEDS: 0.9 % Sodium Chloride 1,000 ML 999 ML IV (08:58)
[2023-02-08] MEDS: Ketorolac Tromethamine 15 MG/ML VIAL IVPUSH (08:58)
--- NOTE | 2023-02-08 08:58 | ED_ITS ---
HPI - URI/Sore Throat General Chief Complaint: General Medical Stated Complaint: covid + vomiting headache Time Seen by Provider: 02/08/23 08:40 Source: patient and family Mode of arrival: ambulatory Limitations: no limitations History of Present Illness HPI Narrative: 27 yo female denies any sig PMH UTD on COVID shot x 2 states she has had headaches, body aches, nausea since 02/06 after a friend exposed her to COVID she tested positive yesterday. She came in today due to worsening pains and nausea and she cannot eat. She has not had COVID and this is her first time during the pandemic. She denies CP/SOB. MD elicited complaint: fever and other (headaches body aches) Onset (ago): day(s) (2) Consistency: constant Severity: severe Able to tolerate fluids by mouth: Yes Exacerbating factors: changing head position Relieving factors: OTC cold medicine Context: sick contacts Associated symptoms: fever, chills, myalgias, headache, nausea and vomiting Treatments prior to arrival: none Related Data Previous Rx's Medication Instructions Recorded naproxen 500 mg tablet 500 mg PO BID PRN pain #14 tabs 09/08/22 nirmatrelvir 300 mg (150 mg See Rx Instructions PO .COMPLEX 02/08/23 x2)-ritonavir 100 mg tablet,dose #30 ea pack (Paxlovid) ondansetron 4 mg disintegrating 4 mg PO Q8H PRN nausea and 02/08/23 tablet vomiting #20 tabs Allergies Allergy/AdvReac Type Severity Reaction Status Date / Time No Known Allergies Allergy Verified 05/10/22 10:08 [No Known Allergies*] Review of Systems Review of Systems: Constitutional : positive Fever, positive Chills, positive fatigue, positive Malaise ENT/Mouth : no sore throat, positive runny nose Eyes: No Discharge Cardiovascular : No Chest Pain, No SOB Respiratory : No Cough, No Sputum Gastrointestinal : No Nausea, No Vomiting, No Diarrhea Genitourinary : No Dysuria, No Urinary Frequency Musculoskeletal : positive Myalgia Skin : No rash Neuro : pos Headache All other systems reviewed and are negative [facility] Past Medical History Attestation statement: The following information was validated with the patient. Medical History No known health problems Family History Family History Father Hypertension Diabetes Substance use disorder Mother No problems noted. Sister Mental health disorder Sister Mental health disorder Social History Social History Household Members Other:: single mother, unemployed Housing: Apartment Alcohol intake: current Alcohol intake frequency: a few times a month Patient Tobacco Use Status: Current everyday Tobacco user Cigarettes Per Day: 7 e-Cigarette/Vaping Use: Never Used Advance Directives: No Advance Directives Information Provided: No Current occupational status: unemployed Cognitive needs: No Hearing needs: No Vision needs: Yes Physical Exam Vital Signs: Vital Signs: Last Vital Signs Temp 99.2 F 02/08/23 08:24 Pulse 107 H 02/08/23 08:24 Resp 16 02/08/23 08:24 BP 101/73 02/08/23 08:24 Pulse Ox 96 02/08/23 08:24 O2 Del Method Room Air 02/08/23 08:24 BMI result Body Mass Index 32.7 Appearance: Alert. Oriented X3. No acute distress. Eyes: Pupils equal, round and reactive to light. ENT: Pharynx normal. Neck: Normal inspection. Neck supple. CVS: Normal heart rate and rhythm. Pulses normal. Respiratory: No respiratory distress. Breath sounds normal. Abdomen: Soft and nontender. Skin: Skin warm and dry. Normal skin color. Normal skin turgor. Extremities: No lower extremity edema. No calf ttp Neuro: Oriented X 3. No motor deficit. No sensory deficit. Course Course Course Narrative: feels much better sleeping - will put paxlovid in but patient is not sure will need to pick it up by Medications Administered Discontinued Medications Generic Name Dose Route Start Last Admin Trade Name Freq PRN Reason Stop Dose Admin Acetaminophen 975 mg 02/08/23 09:52 02/08/23 10:00 Acetaminophen 325 Mg Tablet PO 02/08/23 09:53 975 mg ONCE ONE Administration Diphenhydramine HCl 25 mg 02/08/23 09:52 02/08/23 10:00 Diphenhydramine Hcl 50 Mg/Ml Vial IVPUSH 02/08/23 09:53 25 mg ONCE ONE Administration Sodium Chloride 1,000 mls @ 999 mls/hr 02/08/23 08:45 02/08/23 09:59 Ns IVCONT 02/08/23 10:45 999 mls/hr .Q1H1M KRYSTA Administration Sodium Chloride 1,000 mls @ 999 mls/hr 02/08/23 08:45 02/08/23 10:11 Ns IV 02/08/23 09:45 Infused .Q1H1M KRYSTA Infusion Ketorolac Tromethamine 15 mg 02/08/23 08:42 02/08/23 08:58 Ketorolac Tromethamine 15 Mg/Ml Vial IVPUSH 02/08/23 08:43 15 mg ONCE ONE Administration Metoclopramide HCl 10 mg 02/08/23 09:52 02/08/23 09:59 Metoclopramide Hcl 10 Mg/2 Ml Vial IVPUSH 02/08/23 09:53 10 mg ONCE ONE Administration Ondansetron HCl 4 mg 02/08/23 08:41 02/08/23 08:58 Ondansetron Hcl 4 Mg/2 Ml Vial IVPUSH 02/08/23 08:42 4 mg ONCE ONE Administration Medical Decision Making Medical Decision Making MDM Narrative: 27 yo female no sig PMH UTD on vaccines x 2 first time getting COVID - no hypoxia and clear lungs no CP/SOB to suggest ACS or PE at this time has body aches, fevers and headache with n/v - no meningeal signs and normal neuro exam doubt meningitis/ SAH / encephalitis at this time basic labs, IVF, toradol and zofran ordered. Suspect viral syndrome causing symptoms given + COVID test at home. She is aware of paxlovid and wants to think about taking it. Differential Diagnosis Differential Diagnoses: The differential diagnosis associated with the presentation includes covid, migraine, dehydration Admission/Observation Consideration of admission/observation: Escalation of care including admission/observation considered able to tolerate PO, VS stable and no hypoxia stable for outpatient management Lab Data MDM Lab Attestation statement: I reviewed the patient's lab results. LFTs bumped in past 02/08/23 08:51 02/08/23 08:51 Labs: Lab Results 02/08/23 02/08/23 02/08/23 Range/Units 08:51 08:51 08:51 WBC 7.1 (4.8-10.8) X10*3/uL RBC 3.98 L (4.20-5.50) X10*6/uL Hgb 12.1 (12.0-16.0) g/dl Hct 35.7 L (37.0-47.0) % MCV 89.7 (80.0-98.0) fL MCH 30.4 (27.0-33.0) pg MCHC 33.9 (31.0-35.0) g/dl RDW 13.4 (11.0-16.0) % Plt Count 132 L D (160-400) X10*3/uL MPV 12.2 (9.4-12.3) fL Immature Gran % (Auto) 0.6 H (0.0-0.4) % Neut % (Auto) 76.7 H (45-73) % Lymph % (Auto) 11.8 L (20-40) % Estill % (Auto) 10.8 (2-11) % Eos % (Auto) 0.0 (0-4) % Baso % (Auto) 0.1 (0-2) % Lymph # (Auto) 0.8 L (1.2-4.9) X10*3/uL Estill # (Auto) 0.8 (0.1-1.2) X10*3/uL Eos # (Auto) 0.0 (0.0-0.4) X10*3/uL Baso # (Auto) 0.0 (0.0-0.2) X10*3/uL Abs Immat Gran (auto) 0.04 H (0.00-0.03) X10*3/uL Absolute Neuts (auto) 5.4 (2.0-8.3) x10*3/uL Absolute Nucleated RBC 0.000 (0.0-0.012) X10*3/uL Nucleated RBC % (auto) 0.0 (0.0-0.2) /100WBC Sodium 140 (135-145) mmol/L Potassium 4.0 (3.3-5.1) mmol/L Chloride 108 (96-108) mmol/L Carbon Dioxide 24 (22-29) mmol/L Anion Gap 12 (12-20) BUN 9 (9-16) mg/dL Creatinine 0.84 (0.5-1.4) mg/dL Estim Creat Clear Calc 95.4 Estimated GFR > 60 Random Glucose 112 (60-115) mg/dL Calcium 9.0 (8.4-10.2) mg/dL Magnesium (1.6-2.6) mg/dL Total Bilirubin (0.0-1.0) mg/dL Direct Bilirubin (0.0-0.5) mg/dL AST (5-31) U/L ALT (0-31) U/L Alkaline Phosphatase (39-117) U/L Total Protein (6.5-8.0) g/dL Albumin (3.5-5.0) g/dL Beta HCG, Quant mIU/mL COVID-19 (MARCIA) Positive A (Negative) COVID-19 Clin Com See Note 02/08/23 Range/Units 08:51 WBC (4.8-10.8) X10*3/uL RBC (4.20-5.50) X10*6/uL Hgb (12.0-16.0) g/dl Hct (37.0-47.0) % MCV (80.0-98.0) fL MCH (27.0-33.0) pg MCHC (31.0-35.0) g/dl RDW (11.0-16.0) % Plt Count (160-400) X10*3/uL MPV (9.4-12.3) fL Immature Gran % (Auto) (0.0-0.4) % Neut % (Auto) (45-73) % Lymph % (Auto) (20-40) % Estill % (Auto) (2-11) % Eos % (Auto) (0-4) % Baso % (Auto) (0-2) % Lymph # (Auto) (1.2-4.9) X10*3/uL Estill # (Auto) (0.1-1.2) X10*3/uL Eos # (Auto) (0.0-0.4) X10*3/uL Baso # (Auto) (0.0-0.2) X10*3/uL Abs Immat Gran (auto) (0.00-0.03) X10*3/uL Absolute Neuts (auto) (2.0-8.3) x10*3/uL Absolute Nucleated RBC (0.0-0.012) X10*3/uL Nucleated RBC % (auto) (0.0-0.2) /100WBC Sodium (135-145) mmol/L Potassium (3.3-5.1) mmol/L Chloride (96-108) mmol/L Carbon Dioxide (22-29) mmol/L Anion Gap (12-20) BUN (9-16) mg/dL Creatinine (0.5-1.4) mg/dL Estim Creat Clear Calc Estimated GFR Random Glucose (60-115) mg/dL Calcium (8.4-10.2) mg/dL Magnesium 1.9 (1.6-2.6) mg/dL Total Bilirubin 0.2 (0.0-1.0) mg/dL Direct Bilirubin < 0.2 (0.0-0.5) mg/dL AST 40 H (5-31) U/L ALT 43 H (0-31) U/L Alkaline Phosphatase 46 (39-117) U/L Total Protein 6.9 (6.5-8.0) g/dL Albumin 4.0 (3.5-5.0) g/dL Beta HCG, Quant < 2 mIU/mL COVID-19 (MARCIA) (Negative) COVID-19 Clin Com Independent Historian Clinical information obtained from an independent historian. History obtained from or confirmed by: Friend External Record Review External record reviewed: Office record Prescription Management I considered prescription management with: Antiviral and Other Discharge Plan Discharge Clinical Impression: COVID-19 Patient Disposition: Home, Self-Care Instructions: COVID-19 (Coronavirus Disease 2019) (ED) Additional Instructions: your liver enzymes were minimally elevated you have had this before but 1 week from now get repeated with your doctor. avoid alcohol. return for chest pain, trouble breathing or you are so short of breath you cannot walk to your own bathroom. avoid any cigarette smoke. your platelets were mildly low as well due to COVID - recheck in one week do not take aspirin but motrin is okay stay hydrated, avoid others and wear a mask. alternate motrin and tylenol for fevers and body aches. take nausea medications as needed. push fluids - half gatorade and half water. you would need to start the paxlovid by the Prescriptions: New Paxlovid 300 mg (150 mg x 2)-100 mg tablets,dose pack See Rx Instructions .ROUTE .COMPLEX Qty: 30 0RF Rx Instructions: take TWO 150 mg tablets of nirmatrelvir with ONE 100 mg tablet of ritonavir twice daily for 5 days ondansetron 4 mg tablet,disintegrating 4 mg PO Q8H PRN (Reason: nausea and vomiting) Qty: 20 0RF No Action naproxen 500 mg tablet 500 mg PO BID PRN (Reason: pain) Qty: 14 0RF
[2023-02-08 09:10] LABS: Anion Gap 12 (12-20); Blood Urea Nitrogen 9 mg/dL (9-16); Carbon Dioxide 24 mmol/L (22-29); Chloride 108 mmol/L (96-108); Creatinine Clr Calc Pharmacy 95.4; Estimated Glomerular Filt Rate > 60; Glucose Random 112 mg/dL (60-115); Sodium 140 mmol/L (135-145)
[2023-02-08 09:14] LABS: IDNOW Serial# BCCEAD1C
[2023-02-08 09:15] LABS: COVID-19 Test Positive (Negative)
[2023-02-08 09:22] LABS: Alanine Aminotransferase 43 U/L (0-31); Alkaline Phosphatase 46 U/L (39-117); Aspartate Amino Transferase 40 U/L (5-31); Bilirubin Direct < 0.2 mg/dL (0.0-0.5); Bilirubin Total 0.2 mg/dL (0.0-1.0); HCG Quantitative < 2 mIU/mL; Magnesium 1.9 mg/dL (1.6-2.6); Total Protein 6.9 g/dL (6.5-8.0)
[2023-02-08] MEDS: Metoclopramide HCl 10 MG/2 ML VIAL IVPUSH (09:59)
[2023-02-08] MEDS: Acetaminophen 325 MG TABLET 975 MG PO (10:00)
[2023-02-08] MEDS: diphenhydrAMINE HCL 50 MG/ML VIAL 25 MG IVPUSH (10:00)
== END 2023-02-08 11:41 | disposition home or self-care (01) ==
PROVIDERS: Emergency Provider Emergency Medicine; PCP Internal Medicine
DX: U07.1 COVID-19 (principal)
CPT/HCPCS: 36415; 80048; 80076; 83735; 84702; 85025; 87635; 96361; 96374; 96375; 99283; 99284; J1200; J1885; J2405; J2765

== ENCOUNTER 2023-04-01 09:28 | Outpatient (AMB) | payer OTHER, SELFPAY ==
[2023-04-01 09:34] VITALS: BP 120/72; BMI 32.5
--- NOTE | 2023-04-01 09:34 | MHC.OFFVIS ---
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 Do not reschedule Intake Note: Hasn't had her menses since January and patient states she is not sexually active Machine Cloth Measurer Required: No Information Interpreted: non-clinical & clinical Special Projects Manager: Special Projects Manager Present (Elizabet) Allergies No Known Allergies [No Known Allergies*] Allergy (Verified 04/01/23 09:38) Medication List - Last Reconciled 04/01/23 by Cecille Mcmillan CNM No Known Home Meds Is last menstrual period known: Yes Last menstrual period: 02/12/23 Post menopausal: No HPI [employer]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 She says she is not currently sexually active she has a 3-year-old who was born with an absent corpus callosum and she has seizures every day so she is not able to work and has difficulty finding anyone to take care of her even when she needs to come here or go to her doctor's appointment. Her child's back filler operator is to [facility]. She is on high doses of seizure medications. The patient herself has not had sex in several months. She usually gets fairly regular periods since she gave to her daughter but every now and then she will skip a month or they might be late. She use Nexplanon in the past but it caused very abnormal bleeding patterns both with it and after and then she was on pills. She is not interested in having any more children and thinks that she would actually want to have her tubes tied she was always very clear in her mind that she was going to have 1 and done and with all of the issues with her child she is very clear. She did have a gym membership but she did not have anyone to watch her daughter while she went so she does not have that anymore. [facility] Medical History No known health problems Family History Father Hypertension Diabetes Substance use disorder Mother No problems noted. Sister Mental health disorder Sister Mental health disorder Social History Household Members Other:: single mother, unemployed Housing: Apartment Alcohol intake: current Alcohol intake frequency: a few times a month Patient Tobacco Use Status: Current everyday Tobacco user Cigarettes Per Day: 7 e-Cigarette/Vaping Use: Never Used Current occupational status: unemployed Cognitive needs: No Hearing needs: No Vision needs: Yes Female Reproductive History Menstrual Age of Menarche: 12 Duration of menses: other (irregular) Date of last menstrual period: 02/12/23 control method: none Total pregnancies: 1 Full term: 1 Number of Living Children: 1 History of STI: Yes Physical Exam Vital Signs: Last Vital Signs BP 120/72 04/01/23 09:34 BMI result Body Mass Index 32.5 Const General: healthy appearing, comfortable, no acute distress, well developed and alert Nutritional Appearance: average body habitus Orientation/consciousness: patient oriented x3 Limitations: no limitations HEENT Head: Yes normocephalic Neck Neck: Yes normal visual inspection Thyroid: Thyroid normal Chest Chest palpation & inspection: normal inspection of the chest Breast/axilla inspection: normal inspection of the breasts and normal inspection of the axillae Breast/axilla palpation: normal palpation of the breasts and normal palpation of the axillae Resp Effort & Inspection: normal respiratory effort GI Inspection: Yes normal to inspection, No Abdominal wall edema and No distended Palpation (GI): Soft to palpation and nontender Other: Creamy whitish discharge slightly bubbly that coats the vagina and cervix. Cervix is multiparous long close thick pink mobile nontender. Uterus slightly difficult secondary to tight tone. Does not feel enlarged more midposition then anteverted or retroverted. No adnexal adenopathy. General: Yes bladder normal to palpation External Female Exam: normal external appearance and normal appearance of the urethra Speculum Exam - Vagina: normal appearance of the vagina, normal palpation and normal vaginal discharge Speculum Exam - Cervix: normal appearance of the cervix, normal palpation and nontender Bimanual exam- vagina & uterus: normal bimanual exam, normal palpation, uterine size normal, bladder normal to palpation, consistency normal, normal palpation, uterine mobility normal, uterine shape normal, No Cervical tenderness present, non-tender and no cervical motion tenderness Bimanual Exam- Adnexa, other: normal adnexae, no masses, normal and No adnexal tenderness Neuro General: patient oriented x3 Assessment & Plan Assessment & Plan (1) Well woman exam with routine gynecological exam: Code(s): Z01.419 - Encounter for gynecological examination (general) (routine) without abnormal findings (2) Screen for sexually transmitted diseases: Code(s): Z11.3 - Encounter for screening for infections with a predominantly sexual mode of transmission (3) Cervical cancer screening: Code(s): Z12.4 - Encounter for screening for malignant neoplasm of cervix (4) Dysmenorrhea, unspecified: Code(s): N94.6 - Dysmenorrhea, unspecified (5) Menstrual periods irregular: Code(s): N92.6 - Irregular menstruation, unspecified (6) Counseling for control, intrauterine device: Code(s): Z30.09 - Encounter for other general counseling and advice on contraception Plan -----Discussed in this visit the following: healthy balanced diet, regular and consistent exercise, getting recommended health screens, doing the best she can for her particular health concerns, kegel exercises, pap smear screening and followup recommendations, mammography screening and SBE, normal changes in cycles in her life stage--- .-I reviewed with the patient, all of the currently common used methods of control that are available. We reviewed how they work in the body, how they are taken, common side effects, uncommon side effects, precautions, and contraindications. -Discussed also factors that influence their effectiveness and use, and womens satisfaction with the method. -Discussed how each are used, and drawbacks of each method as well. -Methods covered included: Nexplanon-which she had with,w negative side effects and Mirena and ParaGard IUDs. All of the above methods were covered in great detail including their side effect profiles and common experiences that women have and ways to mitigate against the negative experiences including attention to diet and exercise patient's with bleeding challenges that may occur her and efforts to time the initiation of the method to this start of the menstrual period. 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 I gave her information about the Mirena and told her to call when her period starts so it can be scheduled. Additionally we will call her if there is anything positive on the testing today possibilities include chlamydia trichomoniasis or Gardnerella at the very least. I also told her about the portal in she will get information at the bowling or skating front desk clerk for that. RTC for Mirena insertion with menses. Also discussed the very real stresses that she lives with with caring for her beautiful daughter who has seizures every day and all the challenges that this brings and encouraged her to do some self-care as well discussed the realities of trying to make ends meet and that pasta and rice ends up being she per but does not contribute to us having a healthier life and discussed ways to sneak in activity and exercise at home with no money when she is with her daughter. Orders: Orders CT NG by PCR Today N94.6 - Dysmenorrhea, unspecified, Z11.3 - Encounter for screening for infections with a predominantly sexual mode of transmission Pap Smear Today Z12.4 - Encounter for screening for malignant neoplasm of cervix Bacterial Vaginosis Panel Today N94.6 - Dysmenorrhea, unspecified, Z11.3 - Encounter for screening for infections with a predominantly sexual mode of transmission Coding Level of Care Code New Pt Prev Care [id number] Diagnoses Well woman exam with routine gynecological exam Z01.419 Screen for sexually transmitted diseases Z11.3 Cervical cancer screening Z12.4 Dysmenorrhea, unspecified N94.6 Menstrual periods irregular N92.6 Counseling for control, intrauterine device Z30.09
== END 2023-04-01 10:25 | disposition home or self-care (01) ==
LOC: HO.HWSM 09:28
PROVIDERS: PCP Internal Medicine; Visit Provider Advanced Practice Midwife
DX: Z01.419 Encounter for gynecological examination (general) (routine) without abnormal findings (principal); Z11.3 Encounter for screening for infections with a predominantly sexual mode of transmission; Z12.4 Encounter for screening for malignant neoplasm of cervix; N94.6 Dysmenorrhea, unspecified; N92.6 Irregular menstruation, unspecified; Z30.09 Encounter for other general counseling and advice on contraception
CPT/HCPCS: 99385

== ENCOUNTER 2023-04-01 09:28 | Outpatient (REF) | payer OTHER, SELFPAY | END 2023-04-01 09:29 | disposition home or self-care (01) | LOC: HO.LNP 09:28 | PROVIDERS: PCP Internal Medicine; Visit Provider Advanced Practice Midwife | DX: Z01.419 Encounter for gynecological examination (general) (routine) without abnormal findings (principal); Z11.3 Encounter for screening for infections with a predominantly sexual mode of transmission; N94.6 Dysmenorrhea, unspecified; N92.6 Irregular menstruation, unspecified | CPT/HCPCS: 0353U; 87480; 87510; 87660; 88142; 99385 ==

== ENCOUNTER 2023-04-09 11:13 | Outpatient (AMB) | payer OTHER, SELFPAY ==
[2023-04-09 11:19] VITALS: BP 104/66; PULSE 74; O2SAT 98; BMI 32.5
--- NOTE | 2023-04-09 11:19 | MHC.PC.OV ---
Vital Signs 04/09/23 11:19 Height 5 ft 1 in Weight 172 lb BMI 32.5 BP 104/66 Blood Pressure Location Lt brachial Position Sitting Pulse 74 Pulse Source Pulse Oximeter Pulse Oximetry (%) 98 Oxygen Delivery Method Room Air Intake Visit Reasons: Lumps on lower back Intake Note: Pt is here today for a sick visit. Pt c/o lower back pain. Allergies No Known Allergies [No Known Allergies*] Allergy (Verified 04/09/23 11:25) Tobacco use date assessed: 04/09/23 Dental Screening Dental Screen Date: 04/09/23 Did you have a dental visit in the last 12 months?: Yes Did you have a dental problem in the last 6 months where you did not have access to dental care?: No Was dental information given to patient?: Patient has dentist HPI Lumps on lower back HPI Details Pt c/o chronic LBP worse when bending down and lifting her 3 yo daughter who is disable and not walking. Patient denies pain radiating to lower extremities. [facility] Medical History No known health problems Family History Father Hypertension Diabetes Substance use disorder Mother No problems noted. Sister Mental health disorder Sister Mental health disorder Social History Household Members Other:: single mother, unemployed Housing: Apartment Alcohol intake: current Alcohol intake frequency: a few times a month Patient Tobacco Use Status: Current everyday Tobacco user Cigarettes Per Day: 14 e-Cigarette/Vaping Use: Never Used Current occupational status: unemployed Cognitive needs: No Hearing needs: No Vision needs: Yes Female Reproductive History Menstrual Age of Menarche: 12 Questionnaire PHQ-9 Over the last 2 weeks, how often have you been bothered by any of the following problems? 1. Little interest or pleasure in doing things: not at all 2. Feeling down, depressed, or hopeless: not at all 3. Trouble falling or staying asleep, or sleeping too much: more than half the days 4. Feeling tired or having little energy: not at all 5. Poor appetite or overeating: several days 6. Feeling bad about yourself - or that you are a failure or have let yourself or your family down: not at all 7. Trouble concentrating on things, such as reading the newspaper or watching television: several days 8. Moving or speaking so slowly that other people could have noticed. Or the opposite - being so fidgety or restless that you have been moving around a lot more than usual: not at all 9. Thoughts that you would be better off or of hurting yourself in some way: not at all Total score: 4 Depression Screening Interpretation: Negative Depression Screening Done: Yes Source: Developed by Drs. Chadwick De Souza, Alanis Malagon, Brennan Wooten and colleagues, with an educational diane from [employer]. Thrive Questionnaire Date Thrive assessed: 04/09/23 I am a: Patient What is your living situation today?: I have a steady place to live Within the past 12 months, did the food you bought not last and you didn't have the money to get more?: Never true Within the past 12 months, did you worry whether your food would run out before you got money to buy more?: Never true Do you have trouble paying for medicines?: No Do you have trouble getting transportation to medical appointments?: No Do you have trouble paying your heating and electricity bill?: No Do you have trouble taking care of your child, family member or friend?: No Do you have trouble with day-to-day activities such as bathing, preparing meals, shopping, managing finances, etc.?: No Are you currently unemployed and looking for a job?: No Are you interested in more education?: No Please select the resources that you would like help with: None Currently or been in a relationship where the following occur: no concerns reported AUDIT C Alcohol Use Questionnaire (AUDIT-C) 1. How often do you have a drink containing alcohol?: Never 3. How often do you have six or more drinks on one occasion?: Never Total Score: 0 DEANDRE-7 AMB Questionnaire DEANDRE-7 Date DEANDRE - 7 assessed: 04/09/23 Feeling nervous, anxious, or on edge: 1 = Several days Not being able to stop or control worryin = Several days Worrying too much about different things: 1 = Several days Trouble relaxin = Several days Being so restless that it is hard to sit still: 0 = Not at all Becoming easily annoyed or irritable: 1 = Several days Feeling afraid as if something awful might happen: 1 = Several days Total DEANDRE-7 score (0-4 normal; 5-9 mild; 10-14 moderate; 15-21 severe): 6 Source: Developed by Drs. Chadwick De Souza, Alanis Malagon, Brennan Wooten and colleagues, with an educational diane from [employer]. Review of Systems Const All systems reviewed & are unremarkable except as noted in HPI and below Reports no additional complaints Card Reports no additional complaints Resp Reports no additional complaints GI Reports no additional complaints Physical exam (Primary Care) Vital Signs: Last Vital Signs Pulse 74 04/09/23 11:19 BP 104/66 04/09/23 11:19 Pulse Ox 98 04/09/23 11:19 Oxygen Delivery Method Room Air 04/09/23 11:19 BMI result Body Mass Index 32.5 Tobacco/Smoking Status: Tobacco use Status Tobacco use date assessed 04/09/23 04/09/23 11:27 Patient Tobacco Use Status Current everyday Tobacco 04/09/23 11:27 e-Cigarette/Vaping Use Never Used 04/09/23 11:20 PHQ-9: PHQ-9 Score PHQ-9: Total score 4 04/09/23 11:27 Depression Screening Interpretation: Negative Thrive Assessment: Date of Thrive Assessment Date Thrive assessed 04/09/23 04/09/23 11:27 Currently or been in a relationship where the following occur: no concerns reported Const General: no acute distress Neck Neck: Yes supple Resp Effort & Inspection: normal respiratory effort Auscultation: clear to auscultation bilaterally Cardio Rhythm: regular rhythm Heart sounds: S1 normal heart sound present and S2 normal heart sound present GI Palpation (GI): Soft to palpation Back/Spine/Pelvis Other: Paraspinal tenderness lower lumbar region, straight leg rising 90 degrees bilaterally Assessment and Plan Assessment & Plan (1) Repetitive strain injury of lower back: Code(s): S39.012A - Strain of muscle, fascia and tendon of lower back, initial encounter; X50.3XXA - Overexertion from repetitive movements, initial encounter Plan: Referred to physical therapy Orders: Orders PT Evaluation and Treatment Today S39.012A - Strain of muscle, fascia and tendon of lower back, initial encounter, X50.3XXA - Overexertion from repetitive movements, initial encounter Medications: New nicotine 1 patch transdermal DAILY 28 ea 3RF Coding Level of Care Code Est Pt Level 3 (79444) Diagnoses Repetitive strain injury of lower back S39.012A; X50.3XXA
== END 2023-04-09 12:57 | disposition home or self-care (01) ==
PROVIDERS: PCP Internal Medicine; Visit Provider Internal Medicine
DX: S39.012A Strain of muscle, fascia and tendon of lower back, initial encounter (principal); X50.3XXA Overexertion from repetitive movements, initial encounter
CPT/HCPCS: 99213

== ENCOUNTER 2023-04-11 13:04 | Outpatient (RCR) | payer OTHER, SELFPAY ==
--- NOTE | 2023-04-11 14:24 | MHC.PT.EP ---
[facility] [place] Office [place] Office [place] Office [address] Amy Hays [address] [phone] F: [phone] F: [phone] F: [phone] F: [phone] Physical Therapy Plan of Care Date of Evaluation: 04/11/23 Date of Surgery: Diagnosis: low back strain Assessment: 27 y/o female referred to PT with strain of musccle, fascia, and tendon of lower back and overexertion from repetitive movements. 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 She reports pain and difficulty with caring for daughter (lifting, bathing, carrying her), prolonged positions whether sitting, standing, supine, and prolonged walking. Her back pain appears to be stemming from poor core/hip strength, poor lifting mechanics, poor breathing mechanics, and hypermobility. Recommend PT 1x/week for 6 weeks to address impairments, implement HEP, and optimize functional mobility. Educated pt and practiced proper lifting mechanics, mechanics for bathing her child, and HEP. Of note, she also has movable 'lumps' across lumbar paraspinals that are painful with palpation ?lipomas, however recommended pt consult with MD regarding these. Frequency and Duration: The patient will be seen 1x/week for 6 weeks Short Term Goals: 3 weeks Compliant with HEP Pt will be able to demosntrate proper lifting mechanics of bolster from floor to chest 10/10x Clinical Nurse Manager Goals: 6 weeks I with HEP and self management of sx Pt will be able to carry her daughter with proper mechanics and self report of pain < 3/10 (IR 6-9) Pt will improve LE strength to 4/5 througout to optimize functional mobility. Treatment Plan: Modalities to reduce pain, spasms and effusion. Manual therapy to restore motion and function. Therapeutic exercise to improve strength and flexibility. Neuromuscular re-education for posture and balance. Therapeutic activities to return to functional activities of daily living. Electronically signed by: Tonja Patel PT Please sign and return to therapist. Thank you for your referral.
--- NOTE | 2023-04-28 11:21 | MHC.PT.DC ---
[facility] [place] Office [place] Office [place] Office [address] Amy Hays [address] [phone] F: [phone] F: [phone] F: [phone] F: [phone] Physical Therapy Discharge Report Diagnosis: low back strain Date of Surgery: Date of Evaluation: 04/11/23 Date of Discharge: 04/28/23 Treatments to Date: 1 Cancellations to Date: 1 No Shows to Date: 2 Discharge Status: Visit Non-compliance Discharge Summary: Pt did not attend any further visits following initial evaluation and is now d/c d/t noncompliance with scheduling policy Electronically signed by: Tonja Patel PT Please sign and return to therapist. Thank you for your referral.
== END 2023-04-28 11:21 | disposition home or self-care (01) ==
LOC: HO.PTCHIC 13:04
PROVIDERS: PCP Internal Medicine; Visit Provider Internal Medicine
DX: S39.012A Strain of muscle, fascia and tendon of lower back, initial encounter (principal); X50.3XXA Overexertion from repetitive movements, initial encounter
CPT/HCPCS: 97112; 97161; 97530

== ENCOUNTER 2023-06-02 10:39 | Outpatient (REF) | payer OTHER, SELFPAY | END 2023-06-02 10:40 | disposition home or self-care (01) | LOC: HO.LNP 10:39 | PROVIDERS: PCP Internal Medicine; Visit Provider Advanced Practice Midwife | DX: A59.9 Trichomoniasis, unspecified (principal) | CPT/HCPCS: 99212 ==

== ENCOUNTER 2023-06-02 10:39 | Outpatient (AMB) | payer OTHER, SELFPAY ==
[2023-06-02 10:42] VITALS: BP 102/66; BMI 32.7
--- NOTE | 2023-06-02 10:42 | A.OFFVIS_ITS ---
Intake Vital Signs 06/02/23 10:42 Height 5 ft 1 in Weight 173 lb BMI 32.7 BP 102/66 Intake Visit Reasons: JESSICA Emission Technician Required: No Information Interpreted: non-clinical & clinical Occupational Health And Safety Manager: Occupational Health And Safety Manager Present (Elizabet) Allergies No Known Allergies [No Known Allergies*] Allergy (Verified 06/02/23 10:46) Medication List - Last Reconciled 06/02/23 by Cecille Mcmillan CNM nicotine 1 patch transdermal DAILY Is last menstrual period known: Yes Last menstrual period: 05/18/23 Post menopausal: No HPI JESSICA HPI Details Patient is here for test of cure for trichomoniasis. I asked her if she took the medicine and she said she did she says she is not with the person anymore she has not been with anybody in long time. She thinks she said she had it since she was with her daughter over 3 years ago and in reviewing that it is because the only person she has had sex with was the father of her baby but has come back from time to time from [place] and she did have sex with him at [facility] this year. Which she meant was that she had not had sex with anybody else. She feels she was stupid to trust him. She is not with anyone currently and she says if she did have sex with anyone again in the future she would use condoms. Safer sex in all circumstances discussed. Offering testing for STIs that can be detected through blood work offered today and testing ordered patient can go when she wishes. She is on the portal. Discussed transmission of STIs in detail. Encouraged to reframe the thinking from ?I was stupid?, to ' I was trusting', and encouraged safer sex until there was absolutely no question of STIs. [facility] Medical History No known health problems Family History Father Hypertension Diabetes Substance use disorder Mother No problems noted. Sister Mental health disorder Sister Mental health disorder Social History Household Members Other:: single mother, unemployed Housing: Apartment Alcohol intake: current Alcohol intake frequency: a few times a month Patient Tobacco Use Status: Current everyday Tobacco user Cigarettes Per Day: 14 e-Cigarette/Vaping Use: Never Used Current occupational status: unemployed Cognitive needs: No Hearing needs: No Vision needs: Yes Female Reproductive History Menstrual Age of Menarche: 12 Duration of menses: other Date of last menstrual period: 05/18/23 control method: none Total pregnancies: 1 Full term: 1 Number of Living Children: 1 Physical Exam Vital Signs: Last Vital Signs BP 102/66 06/02/23 10:42 BMI result Body Mass Index 32.7 External Female Exam: normal external appearance and normal appearance of the urethra Speculum Exam - Vagina: normal appearance of the vagina and normal vaginal discharge Speculum Exam - Cervix: normal appearance of the cervix and Cervical os closed Assessment & Plan Assessment & Plan (1) Screen for sexually transmitted diseases: Code(s): Z11.3 - Encounter for screening for infections with a predominantly sexual mode of transmission (2) control counseling: Code(s): Z30.09 - Encounter for other general counseling and advice on contraception (3) Trichomoniasis: Comment: March 2023, test of cure 06/02/2023. Code(s): A59.9 - Trichomoniasis, unspecified Plan Patient is here for test of cure for trichomoniasis. I asked her if she took the medicine and she said she did she says she is not with the person anymore she has not been with anybody in long time. She thinks she said she had it since she was with her daughter over 3 years ago and in reviewing that it is because the only person she has had sex with was the father of her baby but has come back from time to time from [place] and she did have sex with him at [facility] this year. Which she meant was that she had not had sex with anybody else. She feels she was stupid to trust him. She is not with anyone currently and she says if she did have sex with anyone again in the future she would use condoms. Safer sex in all circumstances discussed. Offering testing for STIs that can be detected through blood work offered today and testing ordered patient can go when she wishes. She is on the portal. Discussed transmission of STIs in detail. Encouraged to reframe the thinking from ?I was stupid?, to ' I was trusting', and encouraged safer sex until there was absolutely no question of STIs. Orders: Orders Hepatitis C Antibody Today Z11.3 - Encounter for screening for infections with a predominantly sexual mode of transmission HIV Ab/Ag Today Z11.3 - Encounter for screening for infections with a predominantly sexual mode of transmission Syphilis Screen Today Z11.3 - Encounter for screening for infections with a predominantly sexual mode of transmission Hepatitis B Surface Antigen Today Z11.3 - Encounter for screening for infections with a predominantly sexual mode of transmission Coding Level of Care Code Est Pt Level 3 (88943) Diagnoses Screen for sexually transmitted diseases Z11.3 control counseling Z30.09 Trichomoniasis A59.9
== END 2023-06-02 11:23 | disposition home or self-care (01) ==
LOC: HO.HWS 10:39
PROVIDERS: PCP Internal Medicine; Visit Provider Advanced Practice Midwife
DX: A59.9 Trichomoniasis, unspecified (principal); Z11.3 Encounter for screening for infections with a predominantly sexual mode of transmission
CPT/HCPCS: 99213

== ENCOUNTER 2023-06-02 12:27 | Outpatient (REF) | payer OTHER, SELFPAY ==
[2023-06-02 16:53] LABS: CT PCR NOT DETECTED (Not Detect.); NG PCR NOT DETECTED (Not Detect.)
[2023-06-03 08:19] LABS: Syphilis Screen Nonreactive (Nonreactive)
[2023-06-03 08:22] LABS: HBsAGNum1 0.29 S/CO (0.00-0.99); HIV AB/AG Nonreactive (Nonreactive); HIV Num 1 0.04 S/CO (0.00-0.99); Hepatitis B Surface Antigen Negative (Negative); ~HepC Num1 0.28 S/CO (0.00-0.79); ~Hepatitis C Antibody Nonreactive (Nonreactive)
[2023-06-03 13:00] LABS: BV Int Neg Control Negative (Negative); BV Int Pos Control Positive (Positive)
== END 2023-06-02 12:28 | disposition home or self-care (01) ==
LOC: HO.HMGCLDS 12:27
PROVIDERS: PCP Internal Medicine; Visit Provider Advanced Practice Midwife
DX: Z11.3 Encounter for screening for infections with a predominantly sexual mode of transmission (principal); Z11.4 Encounter for screening for human immunodeficiency virus [HIV]; A59.9 Trichomoniasis, unspecified
CPT/HCPCS: 0353U; 86780; 86803; 87340; 87389; 87480; 87510; 87660

== ENCOUNTER 2023-07-28 10:19 | Emergency (ER) | payer OTHER, SELFPAY ==
--- NOTE | ~2023-07-28 | US_ITS ---
EXAMINATION: US OBSTETRICAL ULTRASOUND CLINICAL INFORMATION: Concern for ectopic, hCG 26 Cramping and bleeding COMPARISON: None available. LMP: 06/29/2023. Gestational age by maternal dates is 4 weeks 1 day. Estimated date of delivery by maternal dates is 04/04/2024. TECHNIQUE: Transabdominal and transvaginal imaging were performed. FINDINGS: There is no evidence of an intrauterine . There is no gestational sac. There is no evidence of a heart beat. Based on the patient's LMP and hCG, it is too early for ultrasound to detect an intrauterine . The endometrial stripe is normal thickness and measures 1.1 cm. MATERNAL ADNEXA: The right maternal ovary measures 3.8 x 2.2 x 2.4 cm. Volume 10.5 mL. The left maternal ovary measures 3.4 x 2.1 x 2.7 cm. Volume 10.1 mL. There is no free fluid within the cul-de-sac. US/US OB pelvic and transvaginal IMPRESSION: 1. No evidence of intrauterine . Based on the patient's LMP and hCG, it is too early for ultrasound to detect an intrauterine . 2. Normal ovaries. 3. Normal endometrial stripe. If there is continued clinical concern, serial beta-hCGs and/or follow-up ultrasound in 2 weeks could be obtained.
[2023-07-28 10:32] VITALS: BP 117/84; PULSE 86; RESP 18; TEMP 36.4; O2SAT 94; BMI 31.4
[2023-07-28 10:55] LABS: Baso%MD 0.2 %; Eos%MD 4.6 %; Hematocrit 38.4 % (37.0-47.0); Hemoglobin 13.3 g/dl (12.0-16.0); IG%MD 0.5 %; Lymph%MD 19.8 %; Mean Corpuscular HGB Conc 34.6 g/dl (31.0-35.0); Mean Corpuscular Hemoglobin 31.7 pg (27.0-33.0); Mean Corpuscular Volume 91.4 fL (80.0-98.0); Mean Platelet Volume 11.8 fL (9.4-12.3); Mono%MD 10.9 %; Platelet Count 212 X10*3/uL (160-400); Red Cell Distribution Width 13.2 % (11.0-16.0); White Blood Count 9.2 X10*3/uL (4.8-10.8)
[2023-07-28 11:15] LABS: Alanine Aminotransferase 17 U/L (0-31); Albumin Level 4.2 g/dL (3.5-5.0); Alkaline Phosphatase 53 U/L (39-117); Anion Gap 10 (12-20); Aspartate Amino Transferase 14 U/L (5-31); Bilirubin Direct 0.2 mg/dL (0.0-0.5); Bilirubin Total 0.4 mg/dL (0.0-1.0); Blood Urea Nitrogen 11 mg/dL (9-16); Calcium 9.6 mg/dL (8.4-10.2); Carbon Dioxide 22 mmol/L (22-29); Chloride 112 mmol/L (96-108); Creatinine Clr Calc Pharmacy 98.1; Estimated Glomerular Filt Rate > 60; Glucose Random 99 mg/dL (60-115); HCG Quantitative 26 mIU/mL; Lipase 26 U/L (8-78); Potassium 4.7 mmol/L (3.3-5.1); Sodium 139 mmol/L (135-145); Total Protein 7.3 g/dL (6.5-8.0)
--- NOTE | 2023-07-28 11:18 | ED.GENADULT ---
HPI - General Adult General Chief complaint: Vaginal Bleeding Stated complaint: -bleeding and cramping Time Seen by Provider: 07/28/23 11:11 Source: patient Mode of arrival: ambulatory Limitations: no limitations History of Present Illness HPI narrative: Patient is a 27-year-old female , last menstrual period was 06/29/23 presenting to the ED with bright red vaginal bleeding and lower abdominal cramping since this morning. States she put on a pad and came directly here, has not soaked through this pad. Denies any nausea or vomiting. Denies fever. Took test over the weekend which was positive. Denies dysuria, frequency or other urinary symptoms. Unsure of Rh type. 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 MD complaint: vaginal bleeding Onset (ago): hour(s) Location: abdomen Radiation: non-radiation Severity: moderate Quality: other (cramping) Pain Consistency: colicky Treatments prior to arrival: none Related Data Previous Rx's Medication Instructions Recorded nicotine 21 mg/24 hr daily 1 patch transdermal DAILY #28 ea 04/09/23 transdermal patch Allergies Allergy/AdvReac Type Severity Reaction Status Date / Time No Known Allergies Allergy Verified 07/28/23 10:35 [No Known Allergies*] Review of Systems Review of Systems: As per HPI. Yes all other systems are reviewed and are negative Constitutional: Constitutional: Reports as per HPI [facility] Past Medical History Medical History No known health problems Family History Family History Father Hypertension Diabetes Substance use disorder Mother No problems noted. Sister Mental health disorder Sister Mental health disorder Social History Social History Household Members Other:: single mother, unemployed Housing: Apartment Alcohol intake: current Alcohol intake frequency: a few times a month Patient Tobacco Use Status: Current everyday Tobacco user Cigarettes Per Day: 14 e-Cigarette/Vaping Use: Never Used Advance Directives: No Advance Directives Information Provided: No Patient : Yes Current occupational status: unemployed Cognitive needs: No Hearing needs: No Vision needs: Yes Physical Exam ED Vital Signs: Vital Signs - 24 hr 07/28/23 10:32 Temperature 97.5 F Pulse Rate 86 Respiratory Rate 18 Blood Pressure 117/84 Pulse Oximetry 94 Oxygen Delivery Method Room Air BMI result Body Mass Index 31.4 Vital signs have been reviewed and appear to be correct. Blood pressure normal. Heart rate normal. Respiratory rate normal. Temperature normal. Oxygen saturation normal. Const General: cooperative, healthy appearing and no acute distress Orientation/consciousness: oriented to person, oriented to place, oriented to time and patient oriented x3 Limitations: no limitations HENMT Head: Yes normocephalic and Yes atraumatic Ears: external ears normal General nose exam: Normal external nose present Face and sinus: Yes face symmetric Mouth: oropharynx normal and moist mucous membranes Throat: Yes uvula midline Eyes Pupils: Equal, round and reactive pupils present Neck Neck: Yes normal visual inspection and Yes supple Resp Effort & Inspection: normal respiratory effort and able to speak in complete sentences Auscultation: clear to auscultation bilaterally Cardio Rate: regular rate Rhythm: regular rhythm Heart sounds: S1 normal heart sound present and S2 normal heart sound present GI Palpation (GI): Soft to palpation and nontender Auscultation: normoactive bowel sounds General: Yes no CVA tenderness Back/Spine/Pelvis Back: no CVA tenderness Skin General skin exam: elasticity normal and turgor normal Neuro General: oriented to person, oriented to place, oriented to time, patient oriented x3, moves all extremities, no focal motor deficits and CN's II-XI intact bilaterally Cranial nerves: Yes Equal, round and reactive pupils present Cognition (Neuro): normal cognition Extrem General: Yes full ROM, Yes no pedal edema and Yes no calf tenderness Psych Mental Status: mental status grossly normal Affect: normal affect Thought process: Normal thought process present Medical Decision Making Medical Decision Making MDM Narrative: Patient is a 27-year-old female , last menstrual period was 06/29/23 presenting to the ED with bright red vaginal bleeding and lower abdominal cramping since this morning. On exam patient is awake, A+Ox3, VS WNL, afebrile, normal neurological exam without focal deficits, physical exam findings as above. Given reported symptoms and physical exam findings, initial differential includes threatened , ectopic , intrauterine , implantation bleeding. Labs notable for no leukocytosis, no anemia, no significant electrolyte abnormalities, no evidence of [place], normal LFTs. Ultrasound notable for no evidence of IUP, normal ovaries, normal endometrial stripe. My interpretation is in agreement with the radiologist's interpretation. Patient is RH positive, does not require Rhogam. Will refer patient to Dr. Kirkpatrick for ongoing follow up. Advised patient to return to ED for repeat hcg in 48-72 hours if unable to obtain an appointment with Dr. Kirkpatrick within that time. Return precautions discussed at bedside. Patient verbalized understanding of and agreement with plan. Differential Diagnosis Differential Diagnoses: The differential diagnosis associated with the presentation includes As per [facility] Lab Data [facility] Lab Attestation statement: I reviewed the patient's lab results. As per [facility] 07/28/23 10:48 07/28/23 10:48 Labs: Lab Results 07/28/23 07/28/23 Range/Units 10:48 11:33 WBC 9.2 (4.8-10.8) X10*3/uL RBC 4.20 (4.20-5.50) X10*6/uL Hgb 13.3 (12.0-16.0) g/dl Hct 38.4 (37.0-47.0) % MCV 91.4 (80.0-98.0) fL MCH 31.7 (27.0-33.0) pg MCHC 34.6 (31.0-35.0) g/dl RDW 13.2 (11.0-16.0) % Plt Count 212 D (160-400) X10*3/uL MPV 11.8 (9.4-12.3) fL Absolute Nucleated RBC 0.000 (0.0-0.012) X10*3/uL Nucleated RBC % (auto) 0.0 (0.0-0.2) /100WBC Neutrophils % (Manual) 67 (45-73) % Band Neutrophils % 1 L (3-5) % Lymphocytes % (Manual) 21 (20-40) % Monocytes % (Manual) 7 (2-11) % Eosinophils % (Manual) 3 (0-4) % Basophils % (Manual) 1 (0-2) % Abs Neuts (Manual) 6.3 (2.0-8.3) X10*3/uL Lymphocytes # (Manual) 1.9 (1.2-4.9) X10*3/uL Monocytes # (Manual) 0.6 (0.1-1.2) X10*3/uL Eosinophils # (Manual) 0.3 (0.0-0.4) X10*3/uL Basophils # (Manual) 0.1 (0.0-0.2) X10*3/uL Platelet Estimate NORMAL (NORMAL) Plt Morphology Comment NORMAL RBC Morphology NORMAL Sodium 139 (135-145) mmol/L Potassium 4.7 (3.3-5.1) mmol/L Chloride 112 H (96-108) mmol/L Carbon Dioxide 22 (22-29) mmol/L Anion Gap 10 L (12-20) BUN 11 (9-16) mg/dL Creatinine 0.80 (0.5-1.4) mg/dL Estim Creat Clear Calc 98.1 Estimated GFR > 60 Random Glucose 99 (60-115) mg/dL Calcium 9.6 D (8.4-10.2) mg/dL Total Bilirubin 0.4 (0.0-1.0) mg/dL Direct Bilirubin 0.2 (0.0-0.5) mg/dL AST 14 (5-31) U/L ALT 17 (0-31) U/L Alkaline Phosphatase 53 (39-117) U/L Total Protein 7.3 (6.5-8.0) g/dL Albumin 4.2 (3.5-5.0) g/dL Lipase 26 (8-78) U/L Beta HCG, Quant 26 mIU/mL Blood Type A Positive Independent Interpretation I performed an independent interpretation of an: Ultrasound Interpretation: No visible IUP, normal ovaries, normal endometrial stripe Radiology Impression Discussion of test interpretation with radiology: I have reviewed the radiologist's reading. Radiologist Impression: US/US OB pelvic and transvaginal IMPRESSION: 1. No evidence of intrauterine . Based on the patient's LMP and hCG, it is too early for ultrasound to detect an intrauterine . 2. Normal ovaries. 3. Normal endometrial stripe. If there is continued clinical concern, serial beta-hCGs and/or follow-up ultrasound in 2 weeks could be obtained. External Record Review External record reviewed: Inpatient record, Office record and Outpatient record Discharge Plan Discharge Clinical Impression: Threatened , Vaginal bleeding Patient Disposition: Home, Self-Care Instructions: Threatened Miscarriage (ED) Additional Instructions: You were evaluated in the emergency department today for vaginal bleeding. Based on your blood tests, you have a very early . It was too early to visualize an intrauterine on ultrasound. You will need your HCG level rechecked in 48-72 hours (2-3 days). If [address]. Kirkpatrick's office is unable to perform this test you should return to the emergency department to be tested. Return to the emergency department sooner if you develop worsening pain, increased vaginal bleeding/soaking through more than one pad per hour, fever, persistent vomiting, or any other concerning symptoms. Prescriptions: No Action nicotine 21 mg/24 hr patch 24 hour 1 patch transdermal DAILY Qty: 28 3RF Referrals: Tho Kirkpatrick MD [Physician] -
[2023-07-28 11:21] LABS: Band Neutrophils Percent 1 % (3-5); Basophils Abs Manual 0.1 X10*3/uL (0.0-0.2); Basophils Percent Manual 1 % (0-2); Eosinophils Absolute Manual 0.3 X10*3/uL (0.0-0.4); Eosinophils Percent Manual 3 % (0-4); Lymphocytes Absolute Manual 1.9 X10*3/uL (1.2-4.9); Lymphocytes Percent Manual 21 % (20-40); Monocytes Absolute Manual 0.6 X10*3/uL (0.1-1.2); Monocytes Percent Manual 7 % (2-11); Neutrophils Absolute Manual 6.3 X10*3/uL (2.0-8.3); Neutrophils Percent Manual 67 % (45-73)
[2023-07-28 11:22] LABS: Platelet Estimate NORMAL (NORMAL); Platelet Morphology Comment NORMAL; RBC Morphology NORMAL
--- NOTE | 2023-07-28 15:09 | PC.NURSE ---
Patient did not want to wait for discharge paperwork to be entered by provider. Provider reviewed follow up instructions and ultrasound results with patient
== END 2023-07-28 15:10 | disposition home or self-care (01) ==
PROVIDERS: Emergency Provider Emergency Medicine; PCP Internal Medicine
DX: O20.0 Threatened abortion (principal); Z3A.00 Weeks of gestation of pregnancy not specified; Z79.899 Other long term (current) drug therapy
CPT/HCPCS: 36415; 76801; 76817; 80048; 80076; 83690; 84702; 85007; 85027; 86900; 86901; 99284

== ENCOUNTER 2023-07-30 08:14 | Outpatient (REF) | payer OTHER, SELFPAY ==
[2023-07-30 11:38] LABS: HCG Quantitative 29 mIU/mL
== END 2023-07-30 08:15 | disposition home or self-care (01) ==
LOC: HO.LAB 08:14
PROVIDERS: PCP Internal Medicine; Visit Provider Obstetrics & Gynecology
DX: O20.9 Hemorrhage in early pregnancy, unspecified (principal); O99.331 Smoking (tobacco) complicating pregnancy, first trimester; F17.210 Nicotine dependence, cigarettes, uncomplicated; Z3A.01 Less than 8 weeks gestation of pregnancy; Z67.10 Type A blood, Rh positive
CPT/HCPCS: 36415; 84702; 99212

== ENCOUNTER 2023-07-30 10:00 | Outpatient (AMB) | payer OTHER, SELFPAY ==
--- NOTE | 2023-07-30 11:07 | MHC.OFFVIS ---
Intake Vital Signs 07/30/23 11:08 Height 5 ft 1 in Weight 165 lb 5.547 oz BMI 31.2 BP 108/60 Intake Visit Reasons: HCG follow up Doctor Of Pharmacy Required: No Information Interpreted: non-clinical & clinical Accompanied by: Self / Same As Patient Allergies No Known Allergies [No Known Allergies*] Allergy (Verified 07/30/23 11:09) Is last menstrual period known: Yes Last menstrual period: 06/29/23 HPI HPI Comments History of Present Illness Details The patient is presenting for follow-up from emergency room visit. The pain patient went to the ER on 07/28 with vaginal bleeding after a positive test over the weekend. HCG was 26 and a pelvic ultrasound showed no IUP with no adnexal masses. Since then the patient bleeding has slowed down, no pelvic/abdominal pain no nausea or vomiting no other concerns. HCG repeat today went up to 29. Blood type is A positive [facility] Medical History No known health problems Family History Father Hypertension Diabetes Substance use disorder Mother No problems noted. Sister Mental health disorder Sister Mental health disorder Social History Household Members Other:: single mother, unemployed Housing: Apartment Alcohol intake: current Alcohol intake frequency: a few times a month Patient Tobacco Use Status: Current everyday Tobacco user Cigarettes Per Day: 14 e-Cigarette/Vaping Use: Never Used Current occupational status: unemployed Cognitive needs: No Hearing needs: No Vision needs: Yes Female Reproductive History Menstrual Age of Menarche: 12 Date of last menstrual period: 06/29/23 control method: none Physical Exam Vital Signs: Last Vital Signs BP 108/60 07/30/23 11:08 BMI result Body Mass Index 31.2 GI Palpation (GI): Soft to palpation and nontender Other: The patient is declining a pelvic exam Assessment & Plan Assessment & Plan (1) First trimester bleeding: Code(s): O20.9 - Hemorrhage in early , unspecified Plan: Discussed with the patient hCG rate of rise is abnormal from 26-29 in 48 hours, the differential diagnosis includes but not limited to SAB/ectopic . Will repeat hCG in 48 hours. Instructions given the patient to call or go to emergency room in case of pelvic pain and or vaginal bleeding and to schedule a follow-up appointment in 48 hours with hCG quantitative. All questions answered, the patient verbalized understanding. Orders: Orders HCG Quantitative Today Z34.90 - Encounter for supervision of normal , unspecified, unspecified trimester HCG Quantitative 2 Days O20.9 - Hemorrhage in early , unspecified Coding Level of Care Code Est Pt Level 3 (07814) Diagnoses First trimester bleeding O20.9
[2023-07-30 11:08] VITALS: BP 108/60; BMI 31.2
== END 2023-07-30 12:11 | disposition home or self-care (01) ==
LOC: HO.HWS 10:00
PROVIDERS: PCP Internal Medicine; Visit Provider Obstetrics & Gynecology
DX: O20.9 Hemorrhage in early pregnancy, unspecified (principal)
CPT/HCPCS: 99213

== ENCOUNTER 2023-08-01 07:14 | Outpatient (REF) | payer OTHER, SELFPAY ==
[2023-08-01 08:40] LABS: HCG Quantitative 6 mIU/mL
== END 2023-08-01 07:15 | disposition home or self-care (01) ==
LOC: HO.LAB 07:14
PROVIDERS: PCP Internal Medicine; Visit Provider Obstetrics & Gynecology
DX: O20.9 Hemorrhage in early pregnancy, unspecified (principal)
CPT/HCPCS: 36415; 84702; 99212

== ENCOUNTER 2023-08-01 08:19 | Outpatient (AMB) | payer OTHER, SELFPAY ==
--- NOTE | 2023-08-01 08:32 | A.OFFVIS_ITS ---
Intake Vital Signs 08/01/23 08:33 Height 5 ft 1 in Weight 165 lb 5.547 oz BMI 31.2 BP 106/62 Intake Visit Reasons: HCG Follow up Allergies No Known Allergies [No Known Allergies*] Allergy (Verified 07/30/23 11:09) HPI HPI Comments History of Present Illness Details The patient is presenting for follow-up hCG, the patient went to the emergency room on 07/28 with vaginal bleeding after a positive test over the weekend. HCG was 26 and a pelvic ultrasound showed no IUP with no adnexal masses. Repeat hCG on 07/30 was 29. Since then the patient's vaginal bleeding has stopped, no pelvic/abdominal pain no nausea or vomiting no other concerns. HCG repeat today went down to 6. Blood type is A positive [facility] Medical History No known health problems Family History Father Hypertension Diabetes Substance use disorder Mother No problems noted. Sister Mental health disorder Sister Mental health disorder Social History Household Members Other:: single mother, unemployed Housing: Apartment Alcohol intake: current Alcohol intake frequency: a few times a month Patient Tobacco Use Status: Current everyday Tobacco user Cigarettes Per Day: 14 e-Cigarette/Vaping Use: Never Used Current occupational status: unemployed Cognitive needs: No Hearing needs: No Vision needs: Yes Female Reproductive History Menstrual Age of Menarche: 12 Review of Systems Const All systems reviewed & are unremarkable except as noted in HPI and below Reports as per HPI and Reports no additional complaints GI Reports no additional complaints Reports no additional complaints Physical Exam Vital Signs: Last Vital Signs BP 106/62 08/01/23 08:33 BMI result Body Mass Index 31.2 Assessment & Plan Assessment & Plan (1) Complete : Code(s): O03.9 - Complete or unspecified spontaneous without complication Plan: Discussed with the patient the results of hCG dropped to 6, vaginal bleeding completely stopped with no pelvic/abdominal pain or cramping which is consistent with the clinical setting of complete . Will repeat hCG in 1 week to confirm non levels. Instructions given the patient to call in case of pelvic pain, vaginal bleeding, nausea or vomiting or fever above 100.4. All questions answered, the patient verbalized understanding Coding Level of Care Code Est Pt Level 3 (93376) Diagnoses Complete O03.9
[2023-08-01 08:33] VITALS: BP 106/62; BMI 31.2
== END 2023-08-01 09:00 | disposition home or self-care (01) ==
LOC: HO.HWS 08:19
PROVIDERS: PCP Internal Medicine; Visit Provider Obstetrics & Gynecology
DX: O03.9 Complete or unspecified spontaneous abortion without complication (principal)
CPT/HCPCS: 99213

== ENCOUNTER 2023-08-07 07:37 | Outpatient (REF) | payer OTHER, SELFPAY ==
[2023-08-07 08:18] LABS: HCG Quantitative < 2 mIU/mL
== END 2023-08-07 07:38 | disposition home or self-care (01) ==
LOC: HO.LAB 07:37
PROVIDERS: PCP Internal Medicine; Visit Provider Obstetrics & Gynecology
DX: O03.9 Complete or unspecified spontaneous abortion without complication (principal)
CPT/HCPCS: 36415; 84702; 99212

== ENCOUNTER 2023-08-07 09:02 | Outpatient (AMB) | payer OTHER, SELFPAY ==
[2023-08-07 09:12] VITALS: BMI 31.2
--- NOTE | 2023-08-07 09:12 | MHC.OFFVIS ---
Intake Vital Signs 08/07/23 09:12 Height 5 ft 1 in Weight 165 lb 5.547 oz BMI 31.2 Intake Visit Reasons: Lab work per Dr. Kirkpatrick Allergies No Known Allergies [No Known Allergies*] Allergy (Verified 07/30/23 11:09) HPI HPI Comments History of Present Illness Details The patient is presenting for follow-up hCG, the patient went to the emergency room on 07/28 with vaginal bleeding after a positive test over the weekend. HCG was 26 and a pelvic ultrasound showed no IUP with no adnexal masses. Repeat hCG on 07/30 was 29. On 08/01 hCG was 6 and today hCG was less than 2. Since then the patient's vaginal bleeding has stopped, no pelvic/abdominal pain no nausea or vomiting no other concerns. [facility] Medical History No known health problems Family History Father Hypertension Diabetes Substance use disorder Mother No problems noted. Sister Mental health disorder Sister Mental health disorder Social History Household Members Other:: single mother, unemployed Housing: Apartment Alcohol intake: current Alcohol intake frequency: a few times a month Patient Tobacco Use Status: Current everyday Tobacco user Cigarettes Per Day: 14 e-Cigarette/Vaping Use: Never Used Current occupational status: unemployed Cognitive needs: No Hearing needs: No Vision needs: Yes Female Reproductive History Menstrual Age of Menarche: 12 Review of Systems Const All systems reviewed & are unremarkable except as noted in HPI and below Reports as per HPI and Reports no additional complaints GI Reports no additional complaints Reports no additional complaints Physical Exam Vital Signs: BMI result Body Mass Index 31.2 Assessment & Plan Assessment & Plan (1) Complete : Code(s): O03.9 - Complete or unspecified spontaneous without complication Plan: Discussed with the patient the results of hCG is less than 2. Instructions given to patient to call in case of heavy vaginal bleeding, fever above 100.4, pelvic pain. Offered the patient options of control, the patient declined at this point. All questions answered, the patient verbalized understanding. Coding Level of Care Code Est Pt Level 3 (79668) Diagnoses Complete O03.9
== END 2023-08-07 10:10 | disposition home or self-care (01) ==
LOC: HO.HWS 09:02
PROVIDERS: PCP Internal Medicine; Visit Provider Obstetrics & Gynecology
DX: O03.9 Complete or unspecified spontaneous abortion without complication (principal)
CPT/HCPCS: 99213

== ENCOUNTER 2024-02-04 11:17 | Outpatient (AMB) | payer OTHER, SELFPAY ==
[2024-02-04 11:24] VITALS: BP 118/74; PULSE 75; O2SAT 98; BMI 32.1
--- NOTE | 2024-02-04 11:24 | MHC.PC.OV ---
Vital Signs 02/04/24 11:24 Height 5 ft 1 in Weight 170 lb BMI 32.1 BP 118/74 Blood Pressure Location Lt brachial Position Sitting Pulse 75 Pulse Source Pulse Oximeter Pulse Oximetry (%) 98 Oxygen Delivery Method Room Air Intake Visit Reasons: Meds follow up Intake Note: Pt is here today for a follow up visit. Allergies No Known Allergies [No Known Allergies*] Allergy (Verified 02/04/24 11:25) Medication List - Last Reconciled 02/04/24 by Lala Harding MD No Known Home Meds Tobacco use date assessed: 02/04/24 Dental Screening Dental Screen Date: 02/04/24 Did you have a dental visit in the last 12 months?: No Did you have a dental problem in the last 6 months where you did not have access to dental care?: Yes Was dental information given to patient?: Yes HPI Meds follow up HPI Details Pt presents for physical, she would like to discuss smoking cessation. She tried Chantix in the past with good relief. Pt has been under a lot stress raising 4 yr daughter with severe disability. [facility] Medical History No known health problems Family History Father Hypertension Diabetes Substance use disorder Mother No problems noted. Sister Mental health disorder Sister Mental health disorder Social History Household Members Other:: single mother, unemployed Housing: Apartment Alcohol intake: current Alcohol intake frequency: a few times a month Patient Tobacco Use Status: Current everyday Tobacco user Cigarettes Per Day: 5 e-Cigarette/Vaping Use: Never Used service: No Current occupational status: unemployed Cognitive needs: No Hearing needs: No Vision needs: Yes Female Reproductive History Menstrual Age of Menarche: 12 Questionnaire PHQ-9 Over the last 2 weeks, how often have you been bothered by any of the following problems? 1. Little interest or pleasure in doing things: not at all 2. Feeling down, depressed, or hopeless: not at all 3. Trouble falling or staying asleep, or sleeping too much: not at all 4. Feeling tired or having little energy: not at all 5. Poor appetite or overeating: not at all 6. Feeling bad about yourself - or that you are a failure or have let yourself or your family down: not at all 7. Trouble concentrating on things, such as reading the newspaper or watching television: not at all 8. Moving or speaking so slowly that other people could have noticed. Or the opposite - being so fidgety or restless that you have been moving around a lot more than usual: not at all 9. Thoughts that you would be better off or of hurting yourself in some way: not at all Total score: 0 Depression Screening Interpretation: Negative Depression Screening Done: Yes 50300 - PHQ-9 Billing: Yes Source: Developed by Drs. Chadwick De Souza, Alanis Malagon, Brennan Wooten and colleagues, with an educational diane from [employer]. Thrive Questionnaire Date Thrive assessed: 02/04/24 I am a: Patient What is your living situation today?: I have a steady place to live Within the past 12 months, did the food you bought not last and you didn't have the money to get more?: Never true Within the past 12 months, did you worry whether your food would run out before you got money to buy more?: Never true Do you have trouble paying for medicines?: No Do you have trouble getting transportation to medical appointments?: No Do you have trouble paying your heating and electricity bill?: No Do you have trouble taking care of your child, family member or friend?: No Do you have trouble with day-to-day activities such as bathing, preparing meals, shopping, managing finances, etc.?: No Are you currently unemployed and looking for a job?: No Are you interested in more education?: No Please select the resources that you would like help with: None Currently or been in a relationship where the following occur: No concerns reported THRIVE Score: 0 AUDIT C Alcohol Use Questionnaire (AUDIT-C) 1. How often do you have a drink containing alcohol?: Never 3. How often do you have six or more drinks on one occasion?: Never Total Score: 0 DEANDRE-7 AMB Questionnaire DEANDRE-7 Date DEANDRE - 7 assessed: 02/04/24 Feeling nervous, anxious, or on edge: 0 = Not at all Not being able to stop or control worryin = Not at all Worrying too much about different things: 1 = Several days Trouble relaxin = Several days Being so restless that it is hard to sit still: 0 = Not at all Becoming easily annoyed or irritable: 1 = Several days Feeling afraid as if something awful might happen: 0 = Not at all Total DEANDRE-7 score (0-4 normal; 5-9 mild; 10-14 moderate; 15-21 severe): 3 Source: Developed by Drs. Chadwick De Souza, Alanis Malagon, Brennan Wooten and colleagues, with an educational diane from [employer]. DEANDRE-7 Assessment Billing DEANDRE-7 Assessment Tool: DEANDRE-7 Assessment 97094 Review of Systems Const All systems reviewed & are unremarkable except as noted in HPI and below ENT Reports no additional complaints Card Reports no additional complaints Resp Reports no additional complaints GI Reports no additional complaints Reports no additional complaints Physical exam (Primary Care) Vital Signs: Last Vital Signs Pulse 75 02/04/24 11:24 BP 118/74 02/04/24 11:24 Pulse Ox 98 02/04/24 11:24 Oxygen Delivery Method Room Air 02/04/24 11:24 BMI result Body Mass Index 32.1 Tobacco/Smoking Status: Tobacco use Status Tobacco use date assessed 02/04/24 02/04/24 11:29 Patient Tobacco Use Status Current everyday Tobacco 02/04/24 11:29 e-Cigarette/Vaping Use Never Used 02/04/24 11:29 PHQ-9: PHQ-9 Score PHQ-9: Total score 0 02/04/24 11:29 Depression Screening Interpretation: Negative Thrive Assessment: Date of Thrive Assessment Date Thrive assessed 02/04/24 02/04/24 11:29 Currently or been in a relationship where the following occur: No concerns reported Const General: no acute distress Eyes General: appearance normal, both eyes and all related structures Neck Neck: Yes supple Resp Effort & Inspection: normal respiratory effort Auscultation: clear to auscultation bilaterally Cardio Rhythm: regular rhythm Heart sounds: S1 normal heart sound present and S2 normal heart sound present GI Inspection: Yes normal to inspection Palpation (GI): Soft to palpation Assessment and Plan Assessment & Plan (1) Annual physical exam: Code(s): Z00.00 - Encounter for general adult medical examination without abnormal findings Plan: Well-balanced diet regular physical activity discussed with the patient (2) Smoker: Code(s): F17.200 - Nicotine dependence, unspecified, uncomplicated Plan: Tobacco quitting discussed with the patient she will try Chantix Orders: Orders HIV Ab/Ag Today Z00.00 - Encounter for general adult medical examination without abnormal findings Syphilis Screen Today Z00.00 - Encounter for general adult medical examination without abnormal findings CT NG by PCR Today Z00.00 - Encounter for general adult medical examination without abnormal findings Medications: New varenicline (Chantix Starting Month Box) PO PER PKG DIR 53 ea 0RF varenicline (Chantix Continuing Month Box) 1 mg PO BID 56 tabs 1RF One Daily [phone] mg-mcg-mg ([id number] fum-folic ac-om3) 1 pkg PO .qd 60 ea 5RF NS Coding Level of Care Code Est Pt Prev Care 18-39y(45844) Diagnoses Annual physical exam Z00.00 Smoker F17.200 Additional Codes DEANDRE-7 Assessment Billing - DEANDRE-7 Assessment Tool: DEANDRE-7 Assessment 63645 ([id number])
== END 2024-02-04 12:17 | disposition home or self-care (01) ==
PROVIDERS: PCP Internal Medicine; Visit Provider Internal Medicine
DX: Z00.00 Encounter for general adult medical examination without abnormal findings (principal); F17.200 Nicotine dependence, unspecified, uncomplicated
CPT/HCPCS: 99395

== ENCOUNTER 2024-02-04 11:57 | Outpatient (REF) | payer OTHER, SELFPAY ==
[2024-02-05 04:45] LABS: Syphilis Screen Nonreactive (Nonreactive)
[2024-02-05 05:15] LABS: HIV AB/AG Nonreactive (Nonreactive); HIV Num 1 0.07 S/CO (0.00-0.99)
== END 2024-02-04 11:58 | disposition home or self-care (01) ==
LOC: HO.HMGCLDS 11:57
PROVIDERS: PCP Internal Medicine; Visit Provider Internal Medicine
DX: Z00.00 Encounter for general adult medical examination without abnormal findings (principal); Z11.4 Encounter for screening for human immunodeficiency virus [HIV]
CPT/HCPCS: 36415; 86780; 87389

== ENCOUNTER 2024-04-15 09:37 | Emergency (ER) | payer OTHER, SELFPAY ==
--- NOTE | ~2024-04-15 | XR_ITS ---
EXAMINATION: XR LUMBOSACRAL SPINE CLINICAL INFORMATION: Midline tenderness. COMPARISON: Radiographs lumbar spine 05/10/2022. TECHNIQUE: Three views of the lumbosacral spine. FINDINGS: The vertebral bodies and posterior elements are normal. The disc spaces are preserved and the vertebral alignment is normal. The paraspinal soft tissues are normal. XR/XR lumbar spine 2-3V IMPRESSION: Unremarkable examination. Electronically signed by: Muna Kothari MD 04/15/2024 03:39 PM EDT
[2024-04-15 09:38] VITALS: BP 123/81; PULSE 96; RESP 18; TEMP 36.3; O2SAT 99; BMI 31.1
--- NOTE | 2024-04-15 11:28 | ED.GENADULT ---
HPI - General Adult General Chief complaint: Back Pain/Injury Stated complaint: Back pain Time Seen by Provider: 04/15/24 11:27 Source: patient Mode of arrival: ambulatory Limitations: no limitations History of Present Illness ED Provider: Wicho BALDERAS narrative: Patient is a 28-year-old female with chronic lower back pain presenting to the emergency department with complaint of exacerbation of low back pain over the past 3 days. She has a daughter with special needs and has to carry her up 3 flights of stairs, she weighs over 40 lb and also requires a specialized wheelchair. 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 Denies any radiation of pain to her lower extremities. Denies any saddle anesthesia or bowel or bladder incontinence. Denies fevers, history of IV drug use or cancer. complaint: back pain Onset (ago): day(s) Location: back Quality: aching Pain Consistency: constant Relieving factors: none Associated symptoms: denies other symptoms Related Data Previous Rx's ?Medication ?Instructions ?Recorded One Daily 28 mg-800 1 pkg PO .qd #60 ea 02/04/24 mcg-440 mg oral pack ([id number] fum-folic [id number]) varenicline 0.5 mg (11)-1 mg (42) See Rx Instructions PO PER PKG DIR 02/04/24 tablets in a dose pack (Chantix #53 ea Starting Month Box) varenicline 1 mg tablet (Chantix 1 mg PO BID #56 tabs 02/04/24 Continuing Month Box) ketorolac 10 mg tablet 10 mg PO Q8H PRN pain 4 days #12 04/15/24 tabs lidocaine 5 % topical patch 1 patch topical DAILY #15 ea 04/15/24 Allergies Allergy/AdvReac Type Severity Reaction Status Date / Time No Known Allergies Allergy Verified 04/15/24 09:41 [No Known Allergies*] Review of Systems Review of Systems: as per hpi Yes all other systems are reviewed and are negative Constitutional: Constitutional: Reports as per HPI PMFSH Past Medical History Medical History No known health problems Family History Family History Father Hypertension Diabetes Substance use disorder Mother No problems noted. Sister Mental health disorder Sister Mental health disorder Social History Social History Household Members Other:: single mother, unemployed Housing: Apartment Alcohol intake: current Alcohol intake frequency: a few times a month Patient Tobacco Use Status: Current everyday Tobacco user Cigarettes Per Day: 5 e-Cigarette/Vaping Use: Never Used Advance Directives: No Advance Directives Information Provided: Yes Do you have a plan to hurt others: No Plan service: No Current occupational status: unemployed Cognitive needs: No Hearing needs: No Vision needs: Yes Physical Exam ED Vital Signs: Vital Signs - 24 hr 04/15/24 09:38 04/15/24 13:28 04/15/24 15:07 Temperature 97.4 F 98.3 F 98.3 F Pulse Rate 96 72 72 Respiratory Rate 18 15 15 Blood Pressure 123/81 109/71 109/71 Pulse Oximetry 99 97 97 Oxygen Delivery Method Room Air Room Air Room Air BMI result Body Mass Index 31.1 Vital signs have been reviewed and appear to be correct. Blood pressure normal. Heart rate normal. Respiratory rate normal. Temperature normal. Oxygen saturation normal. Const General: cooperative, healthy appearing and no acute distress Orientation/consciousness: oriented to person, oriented to place, oriented to time and patient oriented x3 Limitations: no limitations HENMT Head: Yes normocephalic and Yes atraumatic Ears: external ears normal General nose exam: Normal external nose present Face and sinus: Yes face symmetric Mouth: oropharynx normal and moist mucous membranes Throat: Yes uvula midline Eyes Pupils: Equal, round and reactive pupils present Neck Neck: Yes normal visual inspection and Yes supple Resp Effort & Inspection: normal respiratory effort and able to speak in complete sentences Auscultation: clear to auscultation bilaterally Cardio Rate: regular rate Rhythm: regular rhythm Heart sounds: S1 normal heart sound present and S2 normal heart sound present GI Palpation (GI): Soft to palpation and nontender Auscultation: normoactive bowel sounds General: Yes no CVA tenderness Back/Spine/Pelvis Back: no CVA tenderness Thoracic/Lumbar Spine: thoracic and lumbar spine normal to inspection, thoraco-lumbar ROM normal, straight leg raise negative bilaterally, pain with thoraco-lumbar ROM, paraspinal muscle tenderness bilaterally in the lower lumbar, No thoracic spinal tenderness and lumbar spinal tenderness at L4 and at L5 Skin General skin exam: elasticity normal and turgor normal Neuro General: oriented to person, oriented to place, oriented to time, patient oriented x3, gait normal, tone normal, moves all extremities, no focal motor deficits, CN's II-XI intact bilaterally and deep tendon reflexes 2+ bilaterally Cranial nerves: Yes Equal, round and reactive pupils present Cognition (Neuro): normal cognition Motor exam (neuro): 5/5 motor strength present throughout, Normal motor muscle tone present throughout and Motor abnormalities not present Extrem General: Yes full ROM, Yes no pedal edema and Yes no calf tenderness Psych Mental Status: mental status grossly normal Affect: normal affect Thought process: Normal thought process present Medications Administered Discontinued Medications Generic Name Dose Route Start Last Admin Trade Name Freq PRN Reason Stop Dose Admin Ketorolac Tromethamine 30 mg 04/15/24 12:04 04/15/24 12:12 Ketorolac Tromethamine 30 Mg/Ml Vial IM 04/15/24 12:05 30 mg ONCE ONE Administration Lidocaine 2 patch 04/15/24 12:04 04/15/24 12:12 Lidocaine 4 % Patch Adh..Patch TRANSDERMA 04/15/24 12:05 2 patch ONCE ONE Administration Protocol Medical Decision Making Medical Decision Making MDM Narrative: Patient is a 28-year-old female with chronic lower back pain presenting to the emergency department with complaint of exacerbation of low back pain over the past 3 days. On exam patient is awake, A+Ox3, VS WNL, afebrile, normal neurological exam without focal deficits, physical exam findings as above. Given reported symptoms and physical exam findings, initial differential includes lumbar strain, lumbar radiculopathy, degenerative disc disease, disc herniation, spinal stenosis, spondylosis. Less likely vertebral fracture. Do not suspect malignancy/mass, SEA, cauda equina/cord compression. X-ray lumbar spine unremarkable. My interpretation is in agreement with the radiologist's interpretation. Patient stating symptoms have improved after medications given in the ED. She is declining prescriptions for muscle relaxers, again reiterating that she needs to be able to care for her child. Will send prescription for Toradol. Advised her to follow up with PCP as she may require physical therapy given ongoing nature symptoms. Return precautions discussed at bedside. Patient verbalized understanding of and agreement with plan. Differential Diagnosis Differential Diagnoses: The differential diagnosis associated with the presentation includes As per [facility]. Lab Data [facility] Lab Attestation statement: I reviewed the patient's lab results. As per [facility]. Labs: Lab Results 04/15/24 Range/Units 11:46 Urine Color Yellow Urine Appearance Cloudy Urine pH 5.5 (5.0-9.0) Ur Specific Marshall >= 1.030 H (1.005-1.025) Urine Protein Negative (Neg-Trace) mg/dL Urine Glucose (UA) Negative (Negative) mg/dL Urine Ketones Trace (Negative) mg/dL Urine Blood Negative (Negative) Urine Nitrite Negative (Negative) Ur Leukocyte Esterase Negative (Negative) Urine Test NEGATIVE (NEGATIVE) Independent Interpretation I performed an independent interpretation of an: Plain X-Ray Interpretation: Lumbar x-ray unremarkable Radiology Impression Discussion of test interpretation with radiology: I have reviewed the radiologist's reading. Radiologist Impression: XR/XR lumbar spine 2-3V IMPRESSION: Unremarkable examination. External Record Review External record reviewed: Inpatient record, Office record and Outpatient record Prescription Management I considered prescription management with: Pain Medication Discharge Plan Discharge Clinical Impression: Lumbar strain Patient Disposition: Home, Self-Care Instructions: Low Back Strain (ED) Additional Instructions: You were evaluated in the emergency department today for back pain. Your evaluation did not show signs of medical conditions requiring emergent intervention at this time. You are being prescribed Toradol, take this as prescribed. Do not take any other NSAIDs (ibuprofen, naproxen, etc.) while taking this medication. You have been prescribed 5% topical lidocaine patches which you can wear for up to 12 hours in a 24 hour period. Do not apply heat directly over the patches. Please schedule an appointment for follow-up with your primary care physician this week for further evaluation of your symptoms. Return to the emergency department if you experience worsening back pain, difficulty walking, fevers, numbness, tingling, incontinence, groin numbness or tingling, or any other concerning symptoms. Prescriptions: New ketorolac 10 mg tablet 10 mg PO Q8H PRN (Reason: pain) 4 Days Qty: 12 0RF Rx Instructions: maximum total duration of 5 days from all oral, intranasal, or parenteral formulations lidocaine 5 % adhesive patch,medicated 1 patch topical DAILY Qty: 15 0RF Rx Instructions: leave on most painful area for up to 12 hrs No Action varenicline [Chantix Starting Month Box] 0.5 mg (11)- 1 mg (42) tablets,dose pack See Rx Instructions PO PER PKG DIR Qty: 53 0RF Rx Instructions: PO PER PKG DIR varenicline [Chantix Continuing Month Box] 1 mg tablet 1 mg PO BID Qty: 56 1RF One Daily 28-800-440 mg-mcg-mg combo pack 1 pkg PO .qd Qty: 60 5RF Stand Alone Forms: Work/School Release Interventions: ED Discharge Assessment Last Done: 04/15/24 15:07 Discharge Date/Time: 04/15/24 15:08 Print Language: Icelandic
[2024-04-15 11:54] LABS: Appearance Urine Cloudy; Color Urine Yellow; Glucose Urine UA Negative (Negative); Leukocyte Esterase Urine Negative (Negative); Nitrite Urine Negative (Negative); PH 5.5 (5.0-9.0); Specific Gravity - Urine >= 1.030 (1.005-1.025); Urine Blood Negative (Negative); Urine Ketones Trace mg/dL (Negative); Urine Protein Negative (Neg-Trace)
[2024-04-15 11:55] LABS: UPreg QC Valid YES; Urine Pregnancy NEGATIVE (NEGATIVE)
[2024-04-15] MEDS: Ketorolac Tromethamine 30 MG/ML VIAL IM (12:12)
[2024-04-15] MEDS: Lidocaine 4 % Patch ADH..PATCH 2 PATCH TRANSDERMA (12:12)
[2024-04-15 13:28] VITALS: BP 109/71; PULSE 72; RESP 15; TEMP 36.8; O2SAT 97
[2024-04-15 15:07] VITALS: BP 109/71; PULSE 72; RESP 15; TEMP 36.8; O2SAT 97
== END 2024-04-15 15:08 | disposition home or self-care (01) ==
PROVIDERS: Registered Nurse Emergency; Emergency Provider Emergency Medicine; PCP Internal Medicine
DX: S39.012A Strain of muscle, fascia and tendon of lower back, initial encounter (principal); X50.0XXA Overexertion from strenuous movement or load, initial encounter; Y93.89 Activity, other specified; Y92.098 Other place in other non-institutional residence as the place of occurrence of the external cause; Y99.8 Other external cause status
CPT/HCPCS: 72100; 81003; 81025; 96372; 99284; J1885

== ENCOUNTER 2024-06-07 10:26 | Outpatient (REF) | payer OTHER, SELFPAY ==
[2024-06-08 11:45] LABS: Bacterial Vaginosis PCR POSITIVE (Negative); Candida Group PCR NOT DETECTED (Not Detect); Candida glab krusei PCR NOT DETECTED (Not Detect); Trichomonas vaginalis PCR NOT DETECTED (Not Detect)
[2024-06-08 14:00] LABS: CT PCR NOT DETECTED (Not Detect.); NG PCR NOT DETECTED (Not Detect.)
== END 2024-06-07 10:27 | disposition home or self-care (01) ==
LOC: HO.LAB 10:26
PROVIDERS: PCP Internal Medicine; Visit Provider Advanced Practice Midwife
DX: Z01.419 Encounter for gynecological examination (general) (routine) without abnormal findings (principal); N89.8 Other specified noninflammatory disorders of vagina; Z11.3 Encounter for screening for infections with a predominantly sexual mode of transmission; N92.6 Irregular menstruation, unspecified
CPT/HCPCS: 0352U; 87491; 87591; 99395; 99459

== ENCOUNTER 2024-06-07 10:26 | Outpatient (AMB) | payer OTHER, SELFPAY ==
[2024-06-07 10:31] VITALS: BP 118/70; BMI 31.1
--- NOTE | 2024-06-07 10:31 | MHC.OFFVIS ---
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 She might be interested in the method of control she was on the Nexplanon years ago in might consider it again she was skinny and a little teenager when she was on it and she has gained a lot a weight since she has a 4-year-old daughter who has a syndrome where she has no corpus callosum and she is blind and does not walk or talk. She has lots of different appointments with her she and the father have recently had genetic testing but do not expect results for couple of months. She is not currently with anybody but she is interested something to regularize her cycles and help her with her acne and be control method. She would be interested STI testing. She has lots of acne underneath her breasts and isn't sure what to do about that. [facility] Medical History No known health problems Family History Father Hypertension Diabetes Substance use disorder Mother No problems noted. Sister Mental health disorder Sister Mental health disorder Social History Household Members Other:: single mother, unemployed Housing: Apartment Alcohol intake: current Alcohol intake frequency: a few times a month Patient Tobacco Use Status: Current everyday Tobacco user Cigarettes Per Day: 5 e-Cigarette/Vaping Use: Never Used service: No Current occupational status: unemployed Cognitive needs: No Hearing needs: No Vision needs: Yes Female Reproductive History Menstrual Age of Menarche: 12 Duration of menses: 3-5 days Date of last menstrual period: 05/12/24 control method: none Total pregnancies: 2 Full term: 1 Number of Living Children: 1 Date of last pap smear: 04/01/23 (negative) History of abnormal pap smear: No Physical Exam Vital Signs: Last Vital Signs BP 118/70 06/07/24 10:31 BMI result Body Mass Index 31.1 Const General: healthy appearing, comfortable, no acute distress, well developed and alert Nutritional Appearance: average body habitus Orientation/consciousness: patient oriented x3 Limitations: no limitations HEENT Head: Yes normocephalic Neck Neck: Yes normal visual inspection Chest Other: Has scars from acne like lesions underneath breasts. Chest palpation & inspection: normal inspection of the chest Breast/axilla inspection: normal inspection of the breasts and normal inspection of the axillae Breast/axilla palpation: normal palpation of the breasts and normal palpation of the axillae Resp Effort & Inspection: normal respiratory effort GI Inspection: Yes normal to inspection, No Abdominal wall edema and No distended Palpation (GI): Soft to palpation and nontender Other: Normal external exam vagina pink and moist cervix multiparous pink smooth healthy appearing normal scant mucus uterus midposition mobile nontender fair tone with Kegel. General: Yes bladder normal to palpation External Female Exam: normal external appearance and normal appearance of the urethra Speculum Exam - Vagina: normal appearance of the vagina, normal palpation and normal vaginal discharge Speculum Exam - Cervix: normal appearance of the cervix, normal palpation and nontender Bimanual exam- vagina & uterus: normal bimanual exam, normal palpation, uterine size normal, bladder normal to palpation, consistency normal, normal palpation, uterine mobility normal, uterine shape normal, No Cervical tenderness present, non-tender and no cervical motion tenderness Bimanual Exam- Adnexa, other: normal adnexae, no masses, normal and No adnexal tenderness Neuro General: patient oriented x3 Results Reviewed Results Reviewed: Name: Rolanda Vogel Age/Sex: 27/F Attending: Cecille Mcmillan CNM : 1995 Submitted by: Cecille Mcmillan CNM Copies to: Lala Harding MD MR #: [id number] Status: DEP REF Collected: 04/01/23 Location: [facility] Received: 04/01/23 Interpretation Satisfactory for evaluation. Moderate inflammation. Microorganisms consistent with Trichomonas vaginalis. Negative for intraepithelial lesion or malignancy. Clinical Information LMP: 02/12/23 Previous PAP test: Unknown date/findings Material Received ThinPrep-Cervical Copies To Lala Harding MD [facility] [facility] [place] [address] [place], [place] [id number] Electronically Signed By: MARQUITA Noriega (ASCP) 04/02/23 1144 The Pap Test is a screening procedure with the inherent possibility of both false negative and false positive results. Results should be interpreted in the context of historic and current clinical findings. Reliability of the Pap Test is enhanced by performing the test on a regular repetitive basis. Patient: Rolanda Vogel Age/Sex: 27/F MR#: [id number] Page 1 of 1 Assessment & Plan Assessment & Plan (1) Well woman exam with routine gynecological exam: Code(s): Z01.419 - Encounter for gynecological examination (general) (routine) without abnormal findings Category: Medical (2) Cervical cancer screening: Code(s): Z12.4 - Encounter for screening for malignant neoplasm of cervix Category: Medical (3) Menstrual periods irregular: Code(s): N92.6 - Irregular menstruation, unspecified Category: Medical (4) control counseling: Code(s): Z30.09 - Encounter for other general counseling and advice on contraception Category: Medical (5) Screen for sexually transmitted diseases: Code(s): Z11.3 - Encounter for screening for infections with a predominantly sexual mode of transmission Category: Medical (6) BCP ( control pills) initiation: Code(s): Z30.011 - Encounter for initial prescription of contraceptive pills Category: Medical Plan 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 Discussed control issues and options at great length and her history of irregular periods and the possible relationship to weight gain which is an understandable challenge when taking care of herself falls below the priorities of taking care of her daughter. Discussed the interrelationship detail to irregular menses with weight gain discussed that she may in fact need a workup in the future if her periods do not regularize on a method of control but for now she does not need more appointments in her life and she could benefit from a method of control that helps her periods be regular and also protect her from an unintended if she did become sexually active which certainly is possible. For now she would like to get control pills though she might consider a Nexplanon again future she had very irregular bleeding her 1st when she was a teenager. discussed the importance of starting any method with her menses. I suggest she has talked to her primary care provider about breakouts underneath her breasts but I think doing what ever she can do to eat healthier and try to lose weight benefit and also where bras that do not contribute to more perspiration in that area. She does smoke about 6 cigarettes a day. they are her de-stressor when she takes a break from her daughter. We will trial her on control pills with the understanding that she is going to try and quit smoking. If she has not quit smoking we will be discussing other methods of control. I am prescribing the control pills now so she has a method that is available her CLARISSA and also these may help regularize her cycle again if she is still smoking see her in 3 months we will be talking about an alternative method. I only gave her 1 refill on the pills for this reason. Additionally if she continues to have very irregular even on OCPs, we will initiate a workup. Orders: Orders CT NG by PCR Today N89.8 - Other specified noninflammatory disorders of vagina, Z11.3 - Encounter for screening for infections with a predominantly sexual mode of transmission Hepatitis C Antibody Today Z11.3 - Encounter for screening for infections with a predominantly sexual mode of transmission HIV Ab/Ag Today Z11.3 - Encounter for screening for infections with a predominantly sexual mode of transmission Bacterial Vaginosis Panel Today N89.8 - Other specified noninflammatory disorders of vagina Hepatitis B Surface Antigen Today Z11.3 - Encounter for screening for infections with a predominantly sexual mode of transmission Syphilis Screen Today Z11.3 - Encounter for screening for infections with a predominantly sexual mode of transmission Medications: New desog-e.estradiol/e.estradiol 0.15-0.02 mgx21 /0.01 mg x 5 Patient counseled on smoking cessation and will be working on this; to be re-evaluated in 3 months. 1 tab PO DAILY 84 tabs 1RF Coding Level of Care Code Est Pt Prev Care 18-39y([id number]) Diagnoses Well woman exam with routine gynecological exam Z01.419 Cervical cancer screening Z12.4 Menstrual periods irregular N92.6 control counseling Z30.09 Screen for sexually transmitted diseases Z11.3 BCP ( control pills) initiation Z30.011
== END 2024-06-07 11:26 | disposition home or self-care (01) ==
PROVIDERS: PCP Internal Medicine; Visit Provider Advanced Practice Midwife
DX: Z01.419 Encounter for gynecological examination (general) (routine) without abnormal findings (principal); N92.6 Irregular menstruation, unspecified
CPT/HCPCS: 99395

== ENCOUNTER 2024-06-10 10:15 | Outpatient (REF) | payer OTHER, SELFPAY ==
[2024-06-10 10:34] LABS: MANUAL DIFF FLAG NO
[2024-06-10 11:16] LABS: Basophils Percent Auto 0.3 % (0-2); Eosinophils Absolute Auto 0.3 X10*3/uL (0.0-0.4); Eosinophils Percent Auto 2.8 % (0-4); Hematocrit 37.6 % (37.0-47.0); Imm Gran Abs Auto 0.06 X10*3/uL (0.00-0.03); Imm Gran Pct Auto 0.7 % (0.0-0.4); Mean Corpuscular HGB Conc 34.6 g/dl (31.0-35.0); Mean Corpuscular Volume 89.7 fL (80.0-98.0); Mean Platelet Volume 11.9 fL (9.4-12.3); Monocytes Absolute Auto 0.7 X10*3/uL (0.1-1.2); Monocytes Percent Auto 7.1 % (2-11); Neutrophils Absolute Auto 6.2 x10*3/uL (2.0-8.3); Neutrophils Percent Auto 67.1 % (45-73); Platelet Count 185 X10*3/uL (160-400); Red Blood Count 4.19 X10*6/uL (4.20-5.50); Red Cell Distribution Width 13.5 % (11.0-16.0); White Blood Count 9.2 X10*3/uL (4.8-10.8)
[2024-06-10 11:49] LABS: Alanine Aminotransferase 28 U/L (0-31); Aspartate Amino Transferase 20 U/L (5-31); Estimated Glomerular Filt Rate > 60
[2024-06-10 12:01] LABS: HBsAGNum1 0.33 S/CO (0.00-0.99); HIV AB/AG Nonreactive (Nonreactive); HIV Num 1 0.06 S/CO (0.00-0.99); Hepatitis B Surface Antigen Negative (Negative); ~HepC Num1 0.11 S/CO (0.00-0.79); ~Hepatitis C Antibody Nonreactive (Nonreactive)
[2024-06-10 12:35] LABS: Syphilis Screen Nonreactive (Nonreactive)
[2024-06-10 13:27] LABS: CT PCR NOT DETECTED (Not Detect.); NG PCR NOT DETECTED (Not Detect.)
[2024-06-11 11:48] LABS: Herpes Simplex Type 2 IgG <0.90 index
== END 2024-06-10 10:16 | disposition home or self-care (01) ==
LOC: HO.LAB 10:15
PROVIDERS: Absent Provider Internal Medicine Infectious Disease; PCP Internal Medicine; Visit Provider Advanced Practice Midwife
DX: L02.92 Furuncle, unspecified (principal)
CPT/HCPCS: 82565; 84450; 84460; 85025; 86695; 86696; 86780; 86803; 87340; 87389; 87491; 87591

== ENCOUNTER → 2024-09-28 17:33 | Outpatient (BNVA) | payer OTHER, SELFPAY | PROVIDERS: PCP Internal Medicine ==

== ENCOUNTER 2024-10-19 10:47 | Outpatient (AMB) | payer OTHER, SELFPAY ==
--- NOTE | 2024-10-19 10:52 | MHC.PC.OV ---
Vital Signs 10/19/24 10:53 Height 5 ft 2 in Weight 162 lb BMI 29.6 BP 104/66 Blood Pressure Location Lt brachial Position Sitting Respiration 18 Pulse 101 H Pulse Source Pulse Oximeter Temp 98.7 F Temp Source Oral Pulse Oximetry (%) 96 Oxygen Delivery Method Room Air Intake Visit Reasons: Back Pain, Intake Note: Pt is here today for PE. Pt is 5 months . Allergies No Known Allergies [No Known Allergies*] Allergy (Verified 10/19/24 10:57) Tobacco use date assessed: 10/19/24 Dental Screening Dental Screen Date: 10/19/24 Did you have a dental visit in the last 12 months?: Yes Did you have a dental problem in the last 6 months where you did not have access to dental care?: No Was dental information given to patient?: Patient has dentist HPI Back Pain, HPI Details Pt presents for PE. Pt is 18 weeks . [facility] Medical History No known health problems Surgical History No pertinent past surgical history Family History Father Hypertension Diabetes Substance use disorder Mother No problems noted. Sister Mental health disorder Sister Mental health disorder Social History (Updated 10/19/24 @ 11:05 by Lala Harding MD) Household Members Other:: single mother, 5 yr daughter, Housing: Apartment Alcohol intake: current Alcohol intake frequency: a few times a month Patient Tobacco Use Status: Former Tobacco user Cigarettes Per Day: 5 e-Cigarette/Vaping Use: Never Used service: No Current occupational status: unemployed Cognitive needs: No Hearing needs: No Vision needs: Yes Female Reproductive History Menstrual Age of Menarche: 12 Questionnaire PHQ-9 Over the last 2 weeks, how often have you been bothered by any of the following problems? 1. Little interest or pleasure in doing things: not at all 2. Feeling down, depressed, or hopeless: not at all 3. Trouble falling or staying asleep, or sleeping too much: not at all 4. Feeling tired or having little energy: not at all 5. Poor appetite or overeating: not at all 6. Feeling bad about yourself - or that you are a failure or have let yourself or your family down: not at all 7. Trouble concentrating on things, such as reading the newspaper or watching television: not at all 8. Moving or speaking so slowly that other people could have noticed. Or the opposite - being so fidgety or restless that you have been moving around a lot more than usual: not at all 9. Thoughts that you would be better off or of hurting yourself in some way: not at all Total score: 0 Depression Screening Interpretation: Negative Depression Screening Done: Yes 70956 - PHQ-9 Billing: Yes Source: Developed by Drs. Chadwick De Souza, Alanis Malagon, Brennan Wooten and colleagues, with an educational diane from [employer]. Thrive Questionnaire Date Thrive assessed: 10/19/24 I am a: Patient What is your living situation today?: I have a steady place to live Within the past 12 months, did the food you bought not last and you didn't have the money to get more?: Never true Within the past 12 months, did you worry whether your food would run out before you got money to buy more?: Never true Do you have trouble paying for medicines?: No Do you have trouble getting transportation to medical appointments?: No Do you have trouble paying your heating and electricity bill?: No Do you have trouble taking care of your child, family member or friend?: No Do you have trouble with day-to-day activities such as bathing, preparing meals, shopping, managing finances, etc.?: No Are you currently unemployed and looking for a job?: No Are you interested in more education?: No Please select the resources that you would like help with: None Currently or been in a relationship where the following occur: No concerns reported THRIVE Score: 0 AUDIT C Alcohol Use Questionnaire (AUDIT-C) 1. How often do you have a drink containing alcohol?: Never 3. How often do you have six or more drinks on one occasion?: Never Total Score: 0 DEANDRE-7 AMB Questionnaire DEANDRE-7 Date DEANDRE - 7 assessed: 10/19/24 Feeling nervous, anxious, or on edge: 0 = Not at all Not being able to stop or control worryin = Not at all Worrying too much about different things: 0 = Not at all Trouble relaxin = Not at all Being so restless that it is hard to sit still: 0 = Not at all Becoming easily annoyed or irritable: 0 = Not at all Feeling afraid as if something awful might happen: 0 = Not at all Total DEANDRE-7 score (0-4 normal; 5-9 mild; 10-14 moderate; 15-21 severe): 0 Source: Developed by Drs. Chadwick De Souza, Alanis Malagon, Brennan Wooten and colleagues, with an educational diane from [employer]. DEANDRE-7 Assessment Billing DEANDRE-7 Assessment Tool: DEANDRE-7 Assessment 86839 Review of Systems Const All systems reviewed & are unremarkable except as noted in HPI and below Reports no additional complaints Eyes Reports no additional complaints ENT Reports no additional complaints Card Reports no additional complaints Resp Reports no additional complaints GI Reports no additional complaints Physical exam (Primary Care) Vital Signs: Last Vital Signs Temp 98.7 F 10/19/24 10:53 Pulse 101 H 10/19/24 10:53 Resp 18 10/19/24 10:53 BP 104/66 10/19/24 10:53 Pulse Ox 96 10/19/24 10:53 Oxygen Delivery Method Room Air 10/19/24 10:53 BMI result Body Mass Index 29.6 Tobacco/Smoking Status: Tobacco use Status Tobacco use date assessed 10/19/24 10/19/24 10:58 Patient Tobacco Use Status Former Tobacco user 10/19/24 11:00 e-Cigarette/Vaping Use Never Used 10/19/24 10:58 PHQ-9: PHQ-9 Score PHQ-9: Total score 0 10/19/24 10:58 Depression Screening Interpretation: Negative Thrive Assessment: Date of Thrive Assessment Date Thrive assessed 10/19/24 10/19/24 10:58 Currently or been in a relationship where the following occur: No concerns reported Const General: no acute distress HENMT Head: Yes normal to inspection Ears: hearing grossly normal bilaterally General nose exam: Normal external nose present Face and sinus: Yes normal facial exam Mouth: Normal oral and palatal mucosa present Throat: Yes posterior oropharynx normal Eyes General: appearance normal, both eyes and all related structures Neck Neck: Yes no lymphadenopathy and Yes supple Resp Effort & Inspection: normal respiratory effort Auscultation: clear to auscultation bilaterally Cardio Rhythm: regular rhythm Heart sounds: S1 normal heart sound present and S2 normal heart sound present GI Inspection: Yes normal to inspection Palpation (GI): Soft to palpation Percussion: Yes normal to percussion Auscultation: normal bowel sounds Coding Level of Care Code Est Pt Prev Care 18-39y(16273) Diagnoses Annual physical exam Z00.00 Additional Codes DEANDRE-7 Assessment Billing - DEANDRE-7 Assessment Tool: DEANDRE-7 Assessment 87498 ([id number]) PHQ-9 - 91759 - PHQ-9 Billing: Yes ([id number]) Assessment & Plan Assessment & Plan (1) Annual physical exam: Code(s): Z00.00 - Encounter for general adult medical examination without abnormal findings Category: Medical Plan: well balanced diet, regular physical activity discussed with the patient she will follow-up with bandage wrapping machine operator for
[2024-10-19 10:53] VITALS: BP 104/66; PULSE 101; RESP 18; TEMP 37.1; O2SAT 96; BMI 29.6
--- OUTSIDE RECORDS SUMMARY | 2024-10-19 12:31 | XMS_ITS | Encounter Summary ---
Author Organization [facility] Address [address] [place] [address] Care Team Providers Care Breaker Tender Name Role Phone Negro Lane MD Primary Care Provi cassidy Encounter Details Date Type Department Care Team (Late st Contact Info) Description 06/08/2024 Lab Requisition [facility] - Main Lab [address] [place] [id number] Malena Jones MD [address] [place] [id number] Furuncle, unspecified Social History Tobacco Use Types Packs/Day Years Used Date Smoking Tobacco: Former Cigarettes Q uit: 03/05/2019 Smokeless Tobacco: Never Alcohol Use Standard Drinks/Week Comments No 0 (1 standard drink = 0.6 oz pur e alcohol) Comments Unknown Sex and Gender Information Value Date Recorded Sex Assigned at Not on file Legal Sex Female 1:56 PM EST Gender Identity Not on file Sexual Orientation Not on file documented as of this encounter Plan of Treatment Not on file documented as of this encounter Procedures Procedure Name Priority Date/Time Associated Diagnosis Comments CULTURE ANAEROBIC WITH GRAM STAIN Routine 06/08/2024 12:00 AM EST Furuncle, unspecified CULTURE WOUND WITH GRAM STAIN Routine 06/08/2024 12:00 AM EST Furuncle, unspecified documented in this encounter Results * Culture anaerobic with gram stain (06/08/2024 12:00 AM EST) Culture, Anaerobic No Growth of Anaerobes. 06/13/2024 8:10 AM EST [facility] Gram Stain Result Refer to Aerobic culture for gram stain results. 06/13/2024 8:10 AM [facility] Swab 06/08/2024 06/08/2024 7:2 8 PM EST [facility] - 06/13/2024 8:10 AM EST Received aerobic transport swab only - anaerobic culture results may be compromised. Malena Jones MD LAB MICROBIOLOGY - GENERA L ORDERABLES Final Result [facility] [address] [place] [address], [place] [phone] * Culture wound with gram stain (06/08/2024 12:00 AM EST) Culture, Wound Mixed skin candelario present. No pathogens isolated. 06/11/2024 10:31 AM [facility] Gram Stain Result No polymorphonuclear leukocytes, No epithelial cells, and No organisms noted 06/11/2024 10:31 AM [facility] Swab Topography unknown / Unknown 06/08/2024 06/08/2024 7:16 PM EST Malena Jones MD LAB MICROBIOLOGY - GENERA L ORDERABLES Final Result [facility] [address] [place] [address], [place] [phone] documented in this encounter Visit Diagnoses Diagnosis Furuncle, unspecified documented in this encounter Care Teams Breaker Tender Relationship Specialty Start Date End Date Negro Lane MD [address] [place] [address] [place] [address] PCP - General Internal Medicine 06/01/19 documented as of this encounter
--- OUTSIDE RECORDS SUMMARY | 2024-10-19 12:31 | XMS_ITS | Clinical Summary ---
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 Insomnia DX:Insomnia Vaginal trichomoniasis 07/09/2019 DX:Vagina l trichomoniasis; COMMENT: during Anemia during in t hird trimester 09/22/2019 DX:Anemia during i n third trimester Family History Medical History Relation Name Comments Other: down syndrome Aunt Diabetes Father Other: Cardiac Disease Father No Known Problems Mother Other: ovarian cancer Other negati ve Breast cancer Neg Hx Colon cancer Neg Hx Relation Name Status Comments Aunt Father Alive Mother Alive Other Social History Tobacco Use Types Packs/Day Years [...] on file Sexual Orientation Not on file Obstetrics History Plan of Treatment Health Maintenance Due Date Last Done Comments Hepatitis B Vaccines (1 of 3 - 19+ 3-dose series) 2014 Cervical Cancer Screening: P ap Smear 07/05/2022 07/05/2019, 07/05/2019 COVID-19 Vaccine (2023-2 5 season) 2024 Depression Screening 06/09/2024 HIV Screening 06/09/2024 Hepatitis C Screening 06/09/2024 Social Influencers of Health Screening 06/09/2024 Influenza Vaccine (Season Ended) 2025 DTaP,Tdap,and Td Vaccines (2 - Td or Tdap) 09/20/2029 09/21/2019 HIB Vaccines Aged Out No longer eligi ble based on patient's age to complete this topic HPV Vaccines Aged Out No longer eligi ble based on patient's age to complete this topic Hepatitis A Vaccines Aged Out No long er eligible based on patient's age to complete this topic IPV Vaccines Aged Out No longer eligi ble based on patient's age to complete this topic MMR Vaccines Aged Out No longer eligi ble based on patient's age to complete this topic Meningococcal ACWY Vaccine Aged Out N o longer eligible based on patient's age to complete this topic Meningococcal B Vaccine Aged Out No l onger eligible based on patient's age to complete this topic Pneumococcal Vaccine: Pediatrics (0 to 5 Years) and At-Risk Patients (6 to 64 Years) Aged Out No longer eligible b ased on patient's age to complete this topic RSV Immunization Patients Under 20 months Aged Out No longer eligible b ased on patient's age to complete this topic Varicella Vaccines Aged Out No longer eligible based on patient's age to complete this topic Procedures Procedure Name Priority Date/Time Associated Diagnosis Comments PAP SMEAR Routine 07/05/2019 from Last 3 Months or Most Recently Relevant to Health Maintenance Results * Pap smear (07/05/2019) 07/05/2019 Narrative HISTORICAL TESTING LAB RESULTING AGENCY - 07/07/2019 8:55 AM EST [id number] RESULTS OF APTIMA COMBO 2 ASSAY: CHLAMYDIA: ?? NEGATIVE N. GONORRHOEAE: ??NEGATIVE COMPLETED ON 2019-07-06 DALI VARGAS M.D. , PATHOLOGIST (CASE ELECTRONICALLY SIGNED 07 06 2019) CLINICAL INFORMATION: , PAP HX NEG, Z12.4 Z34.02 ENCOUNTER FOR SUPERVISION OF NORMAL FIRST , SECOND TRIMESTER SOURCE: THINPREP PAP FOR CT/GC GROSS DESCRIPTION: THINPREP VIAL RECEIVED. PHYSICIANS VANESA MCKEON/[phone] Vanesa Mckeon [facility] CYTOLOGY ORDERABLES Final Result HISTORICAL TESTING LAB RESULTING AGENCY from Last 3 Months or Most Recently Relevant to Health Maintenance Insurance [facility] [place] [address] Care Teams Talent Acquisition Lead Relationship Specialty Start Date End Date Negro Lane MD [address] [place] [address] [place] [address] PCP - General Internal Medicine 06/01/19
== END 2024-10-19 11:16 | disposition home or self-care (01) ==
PROVIDERS: PCP Internal Medicine; Visit Provider Internal Medicine
DX: Z00.00 Encounter for general adult medical examination without abnormal findings (principal)

== ENCOUNTER → 2024-10-19 10:47 | Outpatient (BNVA) | payer OTHER, SELFPAY | PROVIDERS: PCP Internal Medicine; Visit Provider Internal Medicine | DX: Z34.92 Encounter for supervision of normal pregnancy, unspecified, second trimester (principal) | CPT/HCPCS: 96127; 99395 ==

== ENCOUNTER 2024-11-17 22:10 | Emergency (ER) | payer OTHER, SELFPAY ==
[2024-11-17 22:20] VITALS: BP 132/84; PULSE 93; RESP 16; TEMP 36.3; O2SAT 96; BMI 29.7
--- OUTSIDE RECORDS SUMMARY | 2024-11-17 22:41 | XMS_ITS | Clinical Summary ---
Author Organization [address] Address [address] [place] [phone] Phone Care Team Providers Care Whiteprinting Machine Operator Name Role Phone Negro Lane MD Primary Care [phone] Surgical History Surgery Date Site/Laterality Comments OTHER SURGICAL HISTORY PROCEDURE: [place] UNLISTED PROCEDURE MIDDLE EAR Medical History Medical [...] RESULTING AGENCY - 07/07/2019 8:55 AM EST [id number] RESULTS OF APTIMA COMBO 2 ASSAY: CHLAMYDIA: ?? NEGATIVE N. GONORRHOEAE: ??NEGATIVE COMPLETED ON 2019-07-06 DALI VARGAS M.D. , PATHOLOGIST (CASE ELECTRONICALLY SIGNED 07 06 2019) CLINICAL INFORMATION: , PAP HX NEG, Z12.4 Z34.02 ENCOUNTER FOR SUPERVISION OF NORMAL FIRST , SECOND TRIMESTER SOURCE: THINPREP PAP FOR CT/GC GROSS DESCRIPTION: THINPREP VIAL RECEIVED. PHYSICIANS VANESA MCKEON/[phone] Vanesa Mckeon [facility] CYTOLOGY ORDERABLES Final Result HISTORICAL TESTING LAB RESULTING AGENCY from Last 3 Months or Most Recently Relevant to Health Maintenance Insurance [facility] Care Teams Whiteprinting Machine Operator Relationship Specialty Start Date End Date Negro Lane MD [address] [place] [address] [place] [address] PCP - General Internal Medicine 06/01/19
[2024-11-18 00:15] VITALS: BP 98/55; PULSE 90; RESP 16; TEMP 36.4; O2SAT 99
[2024-11-18 01:03] LABS: Basophils Percent Auto 0.2 % (0-2); Eosinophils Absolute Auto 0.1 X10*3/uL (0.0-0.4); Eosinophils Percent Auto 0.6 % (0-4); Hematocrit 28.1 % (37.0-47.0); Hemoglobin 9.8 g/dl (12.0-16.0); Imm Gran Abs Auto 0.26 X10*3/uL (0.00-0.03); Lymphocytes Absolute Auto 1.9 X10*3/uL (1.2-4.9); Lymphocytes Percent Auto 14.1 % (20-40); MANUAL DIFF FLAG NO; Mean Corpuscular HGB Conc 34.9 g/dl (31.0-35.0); Mean Corpuscular Hemoglobin 31.5 pg (27.0-33.0); Mean Corpuscular Volume 90.4 fL (80.0-98.0); Mean Platelet Volume 11.9 fL (9.4-12.3); Monocytes Absolute Auto 1.1 X10*3/uL (0.1-1.2); Monocytes Percent Auto 8.3 % (2-11); Neutrophils Absolute Auto 9.9 x10*3/uL (2.0-8.3); Neutrophils Percent Auto 74.8 % (45-73); Platelet Count 157 X10*3/uL (160-400); Red Blood Count 3.11 X10*6/uL (4.20-5.50); Red Cell Distribution Width 13.4 % (11.0-16.0); White Blood Count 13.2 X10*3/uL (4.8-10.8)
[2024-11-18] MEDS: 0.9 % Sodium Chloride 1,000 ML 999 ML IV (01:16)
[2024-11-18] MEDS: ondansetron HCL 4 MG/2 ML VIAL IVPUSH (01:17)
[2024-11-18] MEDS: Sucralfate Oral Suspension 1 GM/10 ML ORAL.SUSP PO (01:17)
[2024-11-18 01:28] LABS: Alanine Aminotransferase 15 U/L (0-31); Albumin Level 3.3 g/dL (3.5-5.0); Anion Gap 12 (12-20); Aspartate Amino Transferase 19 U/L (5-31); Bilirubin Total 0.2 mg/dL (0.0-1.0); Blood Urea Nitrogen 6 mg/dL (9-16); Carbon Dioxide 22 mmol/L (22-29); Chloride 110 mmol/L (96-108); Creatinine Clr Calc Pharmacy 149.9; Estimated Glomerular Filt Rate > 60; Glucose Random 84 mg/dL (60-115); Lipase 12 U/L (8-78); Magnesium 1.8 mg/dL (1.6-2.6); Potassium 4.1 mmol/L (3.3-5.1); Sodium 140 mmol/L (135-145)
[2024-11-18 01:42] LABS: HCG Quantitative 31689 mIU/mL
--- NOTE | 2024-11-18 01:48 | ED_ITS ---
HPI - General Adult General Chief complaint: Nausea/Vomiting/Diarrhea Stated complaint: nausea Time Seen by Provider: 11/18/24 00:27 Source: patient Limitations: no limitations History of Present Illness ED Provider: Radha Mora PA-C HPI narrative: 29-year-old female who is currently 22 weeks presents with nausea vomiting. Patient states she ate positive with shrimp for dinner, she began to vomit. Associated epigastric discomfort. Denies fever or diarrhea. Related Data Home Medications ?Medication ?Instructions ?Recorded ?Confirmed ondansetron HCl 4 mg tablet 8 mg PO Q8H PRN nausea and vomiting 09/28/24 09/28/24 vits,calcium 21-iron fum 1 tab PO DAILY 09/28/24 09/28/24 14 mg iron-folic acid 400 mcg tablet ( Complete) Previous Rx's ?Medication ?Instructions ?Recorded ondansetron HCl 4 mg tablet 4 mg PO Q8H PRN nausea and 11/18/24 vomiting #10 tabs sucralfate 100 mg/mL oral 10 ml PO QID PRN indigestion #300 11/18/24 suspension (Carafate) mL Allergies Allergy/AdvReac Type Severity Reaction Status Date / Time No Known Allergies Allergy Verified 11/17/24 22:24 [No Known Allergies*] Review of Systems 2 Review of Systems: Yes all other systems are reviewed and are negative Constitutional: Constitutional: Denies fatigue and Denies fever(s) Cardiovascular: Cardiovascular: Denies chest pain and Denies dyspnea Respiratory: Respiratory: Denies cough and Denies dyspnea Gastrointestinal: Gastrointestinal: Reports abdominal pain, Reports dyspepsia, Denies diarrhea, Reports nausea and Reports vomiting Endocrine: Endocrine: Denies fatigue PMFSH Past Medical History Attestation statement: The following information was validated with the patient. Medical History No known health problems Surgical History No pertinent past surgical history Family History Family History Father Hypertension Diabetes Substance use disorder Mother No problems noted. Sister Mental health disorder Sister Mental health disorder Social History Social History (Updated 10/19/24 @ 11:05 by Lala Harding MD) Household Members Other:: single mother, 5 yr daughter, Housing: Apartment Alcohol intake: current Alcohol intake frequency: a few times a month Patient Tobacco Use Status: Former Tobacco user Cigarettes Per Day: 5 Smoked in Last 30 Days: No e-Cigarette/Vaping Use: Never Used Use of substances other than those prescribed or required for medical reasons: No Advance Directives: No Advance Directives Information Provided: No Do you have a plan to hurt others: No Plan service: No Current occupational status: unemployed Cognitive needs: No Hearing needs: No Vision needs: Yes Physical Exam ED Vital Signs: Vital Signs - 24 hr 11/17/24 22:20 11/18/24 00:15 Temperature 97.3 F 97.5 F Pulse Rate 93 90 Respiratory Rate 16 16 Blood Pressure 132/84 98/55 L Pulse Oximetry 96 99 Oxygen Delivery Method Room Air Room Air BMI result Body Mass Index 29.7 Const Other: Alert, well-appearing Orientation/consciousness: patient oriented x3 Resp Effort & Inspection: normal respiratory effort Cardio Other: Normal peripheral perfusion GI Other: Abdomen is soft, mild tenderness epigastric, without guarding Skin Other: Warm dry no rash Neuro General: patient oriented x3, gait normal, no focal motor deficits and CN's II- XI intact bilaterally Psych Other: Cooperative Course Reevaluation(s) Reevaluation #1: Patient's symptoms have resolved since being medicated Time: 02:32 Medications Administered Discontinued Medications Generic Name Dose Route Start Last Admin Trade Name Freq PRN Reason Stop Dose Admin Sodium Chloride 1,000 mls @ 999 mls/hr 11/18/24 00:45 11/18/24 01:16 Ns IV 11/18/24 01:45 999 mls/hr .Q1H1M KRYSTA Administration Ondansetron HCl 4 mg 11/18/24 00:43 11/18/24 01:17 Ondansetron Hcl 4 Mg/2 Ml Vial IVPUSH 11/18/24 00:44 4 mg ONCE ONE Administration Sucralfate 1 gm 11/18/24 00:43 11/18/24 01:17 Sucralfate Oral Suspension 1 Gm/10 Ml Oral.Susp PO 11/18/24 00:44 1 gm ONCE ONE Administration Medical Decision Making Medical Decision Making MDM Narrative: 29-year-old female who is currently 22 weeks presents with nausea vomiting. Patient states she ate positive with shrimp for dinner, she began to vomit. Associated epigastric discomfort. Denies fever or diarrhea. Problem: History: Per patient I have considered the following differential diagnoses: Biliary colic, cholecystitis, GERD, pancreatitis, food poisoning Plan: Given distribution of discomfort and the fact that the patient had postprandial discomfort nausea vomiting, I am considering underlying biliary pathology as cause. However her abdominal exam was benign, this could also simply be dyspepsia. We will give fluids Zofran Carafate, and screen basic labs and reassess. She may not require imaging. Doubtful to be food poisoning, her significant other is not sick with similar symptoms and she is not having any diarrhea. Labs: slight leukocytosis, left shift noted, patient newly anemic from her baseline 9.8 and 28.1, no elyte abnornality, LFTs [place] , quant [address] FHR 147 bpm I went over lab findings with the patient, she states she has been off her vitamins for the past month secondary to constipation. I did discuss with her the importance of taking her vitamins, she understands, I will send with medication she can use if she develops constipation again, she states she will resume her vitamin therapy. Lab Data 11/18/24 00:58 11/18/24 00:58 Labs: Lab Results 11/18/24 Range/Units 00:58 WBC 13.2 H (4.8-10.8) X10*3/uL RBC 3.11 L D (4.20-5.50) X10*6/uL Hgb 9.8 L D (12.0-16.0) g/dl Hct 28.1 L D (37.0-47.0) % MCV 90.4 (80.0-98.0) fL MCH 31.5 (27.0-33.0) pg MCHC 34.9 (31.0-35.0) g/dl RDW 13.4 (11.0-16.0) % Plt Count 157 L (160-400) X10*3/uL MPV 11.9 (9.4-12.3) fL Immature Gran % (Auto) 2.0 H (0.0-0.4) % Neut % (Auto) 74.8 H (45-73) % Lymph % (Auto) 14.1 L (20-40) % [place] % (Auto) 8.3 (2-11) % Eos % (Auto) 0.6 (0-4) % Baso % (Auto) 0.2 (0-2) % Lymph # (Auto) 1.9 (1.2-4.9) X10*3/uL [place] # (Auto) 1.1 (0.1-1.2) X10*3/uL Eos # (Auto) 0.1 (0.0-0.4) X10*3/uL Baso # (Auto) 0.0 (0.0-0.2) X10*3/uL Abs Immat Gran (auto) 0.26 H (0.00-0.03) X10*3/uL Absolute Neuts (auto) 9.9 H (2.0-8.3) x10*3/uL Absolute Nucleated RBC 0.000 (0.0-0.012) X10*3/uL Nucleated RBC % (auto) 0.0 (0.0-0.2) /100WBC Sodium 140 (135-145) mmol/L Potassium 4.1 (3.3-5.1) mmol/L Chloride 110 H (96-108) mmol/L Carbon Dioxide 22 (22-29) mmol/L Anion Gap 12 (12-20) BUN 6 L (9-16) mg/dL Creatinine 0.52 (0.5-1.4) mg/dL Estim Creat Clear Calc 149.9 Estimated GFR > 60 Random Glucose 84 (60-115) mg/dL Calcium 9.0 D (8.4-10.2) mg/dL Magnesium 1.8 (1.6-2.6) mg/dL Total Bilirubin 0.2 (0.0-1.0) mg/dL AST 19 (5-31) U/L ALT 15 (0-31) U/L Alkaline Phosphatase 58 (39-117) U/L Total Protein 6.0 L (6.5-8.0) g/dL Albumin 3.3 L (3.5-5.0) g/dL Lipase 12 (8-78) U/L Beta HCG, Quant 87908 mIU/mL Discharge Plan Discharge Clinical Impression: Acute epigastric pain, and not yet delivered in second trimester Patient Disposition: Home, Self-Care Instructions: GERD (Gastroesophageal Reflux Disease) (ED), Epigastric Pain (ED) Additional Instructions: All of your screening labs were normal with the exception of your blood counts, you are anemic. You need to take your vitamins as directed. If you develop constipation you can use milk of magnesia, this can be purchased over the counter. Use it per package instructions. I do feel your symptoms overnight were secondary to acid reflux or GERD. See home care instructions. Uses Zofran as needed for nausea. Use the Carafate as needed for upper abdominal discomfort. Follow up with your primary care provider as needed. You need to call your contract law specialist tomorrow, you should have repeat lab studies to check your blood counts within 3-7 days. Prescriptions: New sucralfate [Carafate] 100 mg/mL suspension 10 ml PO QID PRN (Reason: indigestion) Qty: 300 0RF Rx Instructions: swish in mouth and swallow; use after food/drink ondansetron HCl 4 mg tablet 4 mg PO Q8H PRN (Reason: nausea and vomiting) Qty: 10 0RF No Action ondansetron HCl 4 mg tablet 8 mg PO Q8H PRN (Reason: nausea and vomiting) Patient Comments: Prescribed by Nanci Lopes CNM Complete 14 mg iron- 400 mcg tablet 1 tab PO DAILY Stand Alone Forms: Work/School Release Print Language: Mosotho
[2024-11-18 02:06] LABS: Alkaline Phosphatase 58 U/L (39-117)
[2024-11-18 02:57] VITALS: BP 102/64; PULSE 94; RESP 18; TEMP 36.1; O2SAT 98
[2024-11-18 03:02] VITALS: BP 102/64; PULSE 94; RESP 18; TEMP 36.1; O2SAT 98
== END 2024-11-18 03:05 | disposition home or self-care (01) ==
PROVIDERS: Physician Assistant Medical; Emergency Provider Emergency Medicine
DX: O21.8 Other vomiting complicating pregnancy (principal); Z3A.22 22 weeks gestation of pregnancy; O26.892 Other specified pregnancy related conditions, second trimester; R10.13 Epigastric pain
CPT/HCPCS: 36415; 80053; 83690; 83735; 84702; 85025; 96361; 96374; 99284; 99285; J2405

== ENCOUNTER 2024-12-09 14:01 | Outpatient (AMB) | payer OTHER, SELFPAY ==
[2024-12-09 14:02] VITALS: BP 90/60; PULSE 104; RESP 18; TEMP 36.4; O2SAT 97; BMI 29.4
--- NOTE | 2024-12-09 14:02 | A.OFFPC_ITS ---
Vital Signs 12/09/24 14:02 Height 5 ft 2 in Weight 161 lb BMI 29.4 BP 90/60 Blood Pressure Location Rt brachial Position Sitting Respiration 18 Pulse 104 H Pulse Source Pulse Oximeter Temp 97.5 F Temp Source Oral Pulse Oximetry (%) 97 Oxygen Delivery Method Room Air Intake Visit Reasons: ER follow up Intake Note: Pt is here today for ER follow up visit. Allergies No Known Allergies (No Known Allergies*) Allergy (Verified 12/09/24 14:07) Medication List - Last Reconciled 12/09/24 by Lala Harding MD ondansetron HCl 4 mg PO Q8H PRN ondansetron HCl 8 mg PO Q8H PRN 21-iron fu-folic acid 14 mg iron- 400 mcg ( Complete) 1 tab PO DAILY sucralfate (Carafate) 10 mL PO QID PRN Tobacco use date assessed: 12/09/24 Dental Screening Dental Screen Date: 10/19/24 HPI ER follow up HPI Details Patient presents for the follow-up of ER visit for nausea and vomiting for 2 days. Symptoms resolved . patient has been tolerating regular diet and denies abdominal pain fever chills or diarrhea. 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 She will be starting iron supplement in addition to multivitamins for iron deficiency anemia. [facility] Medical History (Updated 12/09/24 @ 14:31 by Lala Harding MD) Iron deficiency anemia No known health problems Surgical History No pertinent past surgical history Family History Father Hypertension Diabetes Substance use disorder Mother No problems noted. Sister Mental health disorder Sister Mental health disorder Social History Household Members Other:: single mother, 5 yr daughter, Housing: Apartment Alcohol intake: current Alcohol intake frequency: a few times a month Patient Tobacco Use Status: Former Tobacco user Cigarettes Per Day: 5 e-Cigarette/Vaping Use: Never Used service: No Current occupational status: unemployed Cognitive needs: No Hearing needs: No Vision needs: Yes Female Reproductive History Menstrual Age of Menarche: 12 Questionnaire Thrive Questionnaire Date Thrive assessed: 10/19/24 DEANDRE-7 AMB Questionnaire DEANDRE-7 Date DEANDRE - 7 assessed: 10/19/24 Source: Developed by Drs. Chadwick De Souza, Alanis Malagon, Brennan Wooten and colleagues, with an educational diane from [employer]. Review of Systems Const All systems reviewed & are unremarkable except as noted in HPI and below ENT Reports no additional complaints Card Reports no additional complaints Resp Reports no additional complaints GI Reports no additional complaints Reports no additional complaints Physical exam (Primary Care) Vital Signs: Last Vital Signs Temp 97.5 F 12/09/24 14:02 Pulse 104 H 12/09/24 14:02 Resp 18 12/09/24 14:02 BP 90/60 12/09/24 14:02 Pulse Ox 97 12/09/24 14:02 Oxygen Delivery Method Room Air 12/09/24 14:02 BMI result Body Mass Index 29.4 Tobacco/Smoking Status: Tobacco use Status Tobacco use date assessed 12/09/24 12/09/24 14:08 Patient Tobacco Use Status Former Tobacco user 12/09/24 14:05 e-Cigarette/Vaping Use Never Used 12/09/24 14:05 Thrive Assessment: Date of Thrive Assessment Date Thrive assessed 10/19/24 12/09/24 14:05 Const General: no acute distress HENMT Head: Yes normal to inspection Throat: Yes posterior oropharynx normal Resp Effort & Inspection: normal respiratory effort Auscultation: clear to auscultation bilaterally Cardio Rhythm: regular rhythm Heart sounds: S1 normal heart sound present and S2 normal heart sound present GI Inspection: Yes normal to inspection Palpation (GI): Soft to palpation Percussion: Yes normal to percussion Auscultation: normal bowel sounds Coding Level of Care Code Est Pt Level 3 (55315) Diagnoses Iron deficiency anemia D50.9 Z34.90 Assessment & Plan Assessment & Plan (1) Iron deficiency anemia: Code(s): D50.9 - Iron deficiency anemia, unspecified Category: Medical Plan: Patient will be adding iron supplement for 1 month and then repeat CBC. (2) : Comment: Established with [employer] bailer operators supervisor Code(s): Z34.90 - Encounter for supervision of normal , unspecified, unspecified trimester Category: Medical Plan: Follow-up with [employer] bailer operators supervisor Orders: Orders Complete Blood Count Auto Diff 1 Month D50.9 - Iron deficiency anemia, unspecified
--- OUTSIDE RECORDS SUMMARY | 2024-12-09 15:20 | XMS_ITS | Clinical Summary ---
Author Organization [address] Address [address] [place] [phone] Phone Care Team Providers Care Marketing Education Teacher Name Role Phone Negro Lane MD Primary Care [phone] Surgical History Surgery Date Site/Laterality Comments OTHER SURGICAL HISTORY PROCEDURE: [place] UNLISTED PROCEDURE MIDDLE EAR Medical History Medical [...] Done Comments Hepatitis B Vaccines (1 of - 19+ 3-dose series) 2014 Cervical Cancer [...] RESULTING AGENCY - 07/07/2019 8:55 AM EST [id number] RESULTS OF APTIMA COMBO 2 ASSAY: CHLAMYDIA: NEGATIVE N. GONORRHOEAE: NEGATIVE COMPLETED ON 2019-07-06 DALI VARGAS M.D. , PATHOLOGIST (CASE ELECTRONICALLY SIGNED 07 06 2019) CLINICAL INFORMATION: , PAP HX NEG, Z12.4 Z34.02 ENCOUNTER FOR SUPERVISION OF NORMAL FIRST , SECOND TRIMESTER SOURCE: THINPREP PAP FOR CT/GC GROSS DESCRIPTION: THINPREP VIAL RECEIVED. PHYSICIANS VANESA MCKEON/[phone] Vanesa Mckeon [facility] CYTOLOG[facility] ORDERABLES Final Result HISTORICAL TESTING LAB RESULTING AGENCY from Last 3 Months or Most Recently Relevant to Health Maintenance Insurance [facility] [place] [id number] Care Teams Marketing Education Teacher Relationship Specialty Start Date End Date Negro Lane MD [address] [place] [id number] PCP - General Internal Medicine 06/01/19
== END 2024-12-09 14:34 | disposition home or self-care (01) ==
LOC: HO.HMCC 14:01
PROVIDERS: PCP Internal Medicine; Visit Provider Internal Medicine
DX: D50.9 Iron deficiency anemia, unspecified (principal); Z34.90 Encounter for supervision of normal pregnancy, unspecified, unspecified trimester

== ENCOUNTER → 2024-12-09 14:01 | Outpatient (BNVA) | payer OTHER, SELFPAY | PROVIDERS: PCP Internal Medicine; Visit Provider Internal Medicine | DX: O99.012 Anemia complicating pregnancy, second trimester (principal); O21.2 Late vomiting of pregnancy; D50.9 Iron deficiency anemia, unspecified; Z3A.26 26 weeks gestation of pregnancy | CPT/HCPCS: 99212 ==